=== PATIENT | male | born 1975 | race Caucasian/White ===

== ENCOUNTER 2019-10-29 21:36 | Emergency (ER) | payer SELFPAY ==
[2019-10-29 22:14] VITALS: BP 146/100
--- NOTE | 2019-10-29 22:49 | ER Document Report ---
ED Medical Screen (RME) - General Chief Complaint: ETOH Abuse Stated Complaint: BLOOD PRESSURE Time Seen by Provider: 10/29/19 22:43 Mode of Arrival: Ambulatory Information source: Patient, Transfer Record TRAVEL OUTSIDE OF THE [place] IN LAST 30 DAYS: No - HPI Onset: Other - unkown Quality of pain: No pain Severity: Moderate Notes: 44 year old male with a history of alcohol abuse sent over from [facility] due to his alcohol level being too high. The patient apparently went to [facility] to get help with his drinking. [facility] followed their protocol and brought the patient to the ER since his alcohol was too high for them. The patient was reported to have a low blood pressure at [facility] but this was not the case on ER arrival. The patient looked comfortable on ER arrival. GEN: Alert and oriented patient, no distress PSYCH: Denied SI and HI to nursing. Requesting help with drinking. The above was simply a medical screening exam. A full history and physical was not performed. 10/29/19 23:20 The patient had the psych orderset ordered for him and he started to become belligerent and angry in the ER. Nursing staff was being verbally abused and there was a concern the altercation could become physical. I instructed nursing staff to call security and the police. The police spoke with the patient and instructed him to leave due to his behavior. It is not clear what the patient's alcohol level was at the time he was asked to leave but he was speaking clearly and was able to walk without any problems. - Related Data Allergies/Adverse Reactions: No Known Allergies Allergy (Unverified 10/29/19 22:08) Past Medical History - Social History Frequency of alcohol use: Heavy Drug Abuse: None Physical Exam - Vital signs Vitals: Temp Pulse Resp BP Pulse Ox 98.4 F 101 H 22 H 113/101 H 98 10/29/19 21:41 10/29/19 21:41 10/29/19 21:41 10/29/19 21:41 10/29/19 21:41 Course - Vital Signs Vital signs: Temp Pulse Resp BP Pulse Ox 98.5 F 89 18 146/100 H 100 10/29/19 22:13 10/29/19 22:13 10/29/19 22:13 10/29/19 22:13 10/29/19 22:13
== END 2019-10-29 23:16 | disposition left against medical advice (07) ==
LOC: ER 21:36
DX: F10.10 Alcohol abuse, uncomplicated (principal); Z53.8 Procedure and treatment not carried out for other reasons

== ENCOUNTER 2019-10-30 01:15 | Inpatient (IN) | payer SELFPAY ==
[2019-10-30 02:03] LABS: HEMATOCRIT 45.6 % (37.9-51.0); HEMOGLOBIN 16.1 g/dL (13.5-17.0); MEAN CORPUSCULAR HEMOGLOBIN 33.9 pg (27.0-33.4); MEAN CORPUSCULAR HGB CONC 35.3 g/dL (32.0-36.0); MEAN CORPUSCULAR VOLUME 96 fl (80-97); PLATELET COUNT 172 10^3/uL (150-450); RED BLOOD COUNT 4.74 10^6/uL (4.35-5.55); RED CELL DISTRIBUTION WIDTH 15.6 % (11.5-14.0); WHITE BLOOD COUNT 4.8 10^3/uL (4.0-10.5)
[2019-10-30 02:20] LABS: ALBUMIN 3.3 g/dL (3.5-5.0); ALKALINE PHOSPHATASE 490 U/L (38-126); ANION GAP 13 (5-19); ASPARTATE AMINO TRANSFERASE 425 U/L (17-59); BILIRUBIN,DIRECT 4.6 mg/dL (0.0-0.4); BILIRUBIN,TOTAL 5.2 mg/dL (0.2-1.3); BLOOD UREA NITROGEN 17 mg/dL (7-20); CALCIUM 7.9 mg/dL (8.4-10.2); CARBON DIOXIDE 22 mmol/L (22-30); CHLORIDE 103 mmol/L (98-107); GLUCOSE 130 mg/dL (75-110); POTASSIUM 3.6 mmol/L (3.6-5.0); TOTAL PROTEIN 6.5 g/dL (6.3-8.2)
[2019-10-30 02:21] LABS: ACETAMINOPHEN < 10 ug/mL (10-30); SALICYLATE < 1.0 mg/dL (2.0-20.0)
[2019-10-30 02:30] LABS: ALCOHOL 314 mg/dL (NONE DETECTED)
[2019-10-30 02:39] LABS: ABSOLUTE LYMPHOCYTES# (MANUAL) 1.7 10^3/uL (0.5-4.7); ABSOLUTE MONOCYTES # (MANUAL) 0.5 10^3/uL (0.1-1.4); BAND NEUTROPHILS % (MANUAL) 1 % (3-5); BASOPHILS % (MANUAL) 0 % (0-2); EOSINOPHILS % (MANUAL) 0 % (0-6); LYMPHOCYTES % (MANUAL) 36 % (13-45); MONOCYTES % (MANUAL) 10 % (3-13); SEGMENTED NEUTROPHILS % (MAN) 53 % (42-78); TOTAL CELLS COUNTED 100
[2019-10-30 02:40] LABS: ANISOCYTOSIS SLIGHT; OVALOCYTES SLIGHT; PLATELET COMMENT ADEQUATE; POIKILOCYTOSIS SLIGHT; TOXIC GRANULATION 1+
[2019-10-30] MEDS ORDERED: ONDANSETRON HCL INJ/PF 4 MG/2 ML SDV IV ONE (06:14)
[2019-10-30] MEDS ORDERED: NORMAL SALINE 1000 ML 2,000 ML IV ONE (06:16)
[2019-10-30 06:48] LABS: APPEARANCE,URINE SLIGHTLY-CLOUDY; BILIRUBIN,URINE MODERATE (NEGATIVE); COLOR,URINE AMBER; GLUCOSE, URINE NEGATIVE (NEGATIVE); KETONES,URINE NEGATIVE (NEGATIVE); LEUKOCYTE ESTERASE,URINE NEGATIVE (NEGATIVE); NITRITE,URINE NEGATIVE (NEGATIVE); PROTEIN,URINE NEGATIVE (NEGATIVE); URINE SPECIFIC GRAVITY 1.025
[2019-10-30 07:04] LABS: INTERNATIONAL RATION (INR) 1.09; PROTHROMBIN TIME 14.1 SEC (11.4-15.4)
[2019-10-30 07:06] LABS: URINE AMPHETAMINES SCREEN NEGATIVE; URINE BARBITURATES SCREEN NEGATIVE; URINE BENZODIAZEPINES SCREEN NEGATIVE; URINE COCAINE SCREEN NEGATIVE; URINE METHADONE SCREEN NEGATIVE; URINE PHENCYCLIDINE SCREEN NEGATIVE
[2019-10-30 07:12] LABS: URINE MARIJUANA (THC) SCREEN NEGATIVE
--- NOTE | 2019-10-30 07:33 | EKG REPORT ---
SEVERITY:- BORDERLINE ECG - SINUS RHYTHM LOW VOLTAGE IN FRONTAL LEADS BORDERLINE T WAVE ABNORMALITIES : Confirmed by: Melquiades Klein MD 30-Oct-2019 07:33:21
--- NOTE | 2019-10-30 07:35 | ER Document Report ---
ED General - General Chief Complaint: Alcohol Withdrawl Stated Complaint: MEDICAL CLEAR FOR MOHINI Time Seen by Provider: 10/30/19 06:13 Mode of Arrival: Ambulatory Information source: Patient TRAVEL OUTSIDE OF THE [place] IN LAST 30 DAYS: No - Related Data Allergies/Adverse Reactions: No Known Allergies Allergy (Unverified 10/29/19 22:08) Past Medical History - Social History Smoking Status: Former Smoker Chew tobacco use (# tins/day): No Frequency of alcohol use: Heavy Drug Abuse: None Patient has suicidal ideation: No Patient has homicidal ideation: No Physical Exam - Vital signs Vitals: Temp Pulse Resp BP Pulse Ox 98 F 94 18 135/90 H 98 10/30/19 01:37 10/30/19 01:37 10/30/19 01:37 10/30/19 01:37 10/30/19 01:37 Course - Vital Signs Vital signs: Temp Pulse Resp BP Pulse Ox 98 F 67 16 131/85 H 99 10/30/19 01:37 10/30/19 06:11 10/30/19 06:11 10/30/19 06:01 10/30/19 06:01 - Laboratory Result Diagrams: 10/30/19 01:45 10/30/19 01:45 Laboratory results interpreted by me: 10/30/19 10/30/19 10/30/19 01:45 01:45 06:05 MCH 33.9 H RDW 15.6 H Band Neutrophils % 1 L Glucose 130 H Calcium 7.9 L Total Bilirubin 5.2 H Direct Bilirubin 4.6 H AST 425 H Alkaline Phosphatase 490 H Albumin 3.3 L Urine Bilirubin MODERATE H Urine Urobilinogen 2.0 H Salicylates < 1.0 L Acetaminophen < 10 L Serum Alcohol 314 H*
[2019-10-30] MEDS ORDERED: LORAZEPAM INJ 2 MG/1 ML VIAL IV ONE (07:47)
--- NOTE | 2019-10-30 07:56 | ER Document Report ---
ED Medical Screen (RME) - General Chief Complaint: Alcohol Withdrawl Stated Complaint: MEDICAL CLEAR FOR MOHINI Time Seen by Provider: 10/30/19 06:13 Mode of Arrival: Ambulatory Information source: Patient Notes: 44-year-old male patient presenting to the emergency department with chief complaint of acute alcohol intoxication and abdominal pain. Patient reports he feels the worst he has ever felt in his life. Patient was trying to obtain treatment at the [facility] when they referred him here for an elevated alcohol level. On review of records patient was also checked and last night but became aggressive and combative with the staff so he decided to leave after a medical screening was done by Dr. Stewart. Patient reports he has been told before that he has a "fatty liver". Patient has jaundice. His abdomen is very tender. I have greeted and performed a rapid initial assessment of this patient. A comprehensive ED assessment and evaluation of the patient, analysis of test results and completion of the medical decision making process will be conducted by additional ED providers. I have specifically instructed the patient or family members with the patient to immediately return to any nursing staff should anything change in the patient's condition or with their chief complaint. TRAVEL OUTSIDE OF THE [place] IN LAST 30 DAYS: No - Related Data Allergies/Adverse Reactions: No Known Allergies Allergy (Unverified 10/29/19 22:08) Past Medical History - Social History Chew tobacco use (# tins/day): No Frequency of alcohol use: Heavy Drug Abuse: None Physical Exam - Vital signs Vitals: Temp Pulse Resp BP Pulse Ox 98 F 94 18 135/90 H 98 10/30/19 01:37 10/30/19 01:37 10/30/19 01:37 10/30/19 01:37 10/30/19 01:37 Course - Vital Signs Vital signs: Temp Pulse Resp BP Pulse Ox 98 F 67 16 122/82 100 10/30/19 01:37 10/30/19 06:11 10/30/19 06:11 10/30/19 07:01 10/30/19 07:01 - Laboratory Result Diagrams: 10/30/19 01:45 10/30/19 01:45 Laboratory results interpreted by me: 10/30/19 10/30/19 10/30/19 01:45 01:45 06:05 MCH 33.9 H RDW 15.6 H Band Neutrophils % 1 L Glucose 130 H Calcium 7.9 L Total Bilirubin 5.2 H Direct Bilirubin 4.6 H AST 425 H Alkaline Phosphatase 490 H Albumin 3.3 L Urine Bilirubin MODERATE H Urine Urobilinogen 2.0 H Salicylates < 1.0 L Acetaminophen < 10 L Serum Alcohol 314 H*
--- NOTE | 2019-10-30 08:33 | RADIOLOGY REPORT (SQ) ---
EXAM DESCRIPTION: U/S ABDOMEN LIMITED W/O DOP COMPLETED DATE/TIME: 10/30/2019 8:21 am REASON FOR STUDY: eval for ascites COMPARISON: None. TECHNIQUE: Static and real time goodwin scale ultrasound images acquired of the abdomen for evaluation of ascites. Additional color Doppler images acquired. LIMITATIONS: None. FINDINGS: Limited sonographic evaluation of all 4 quadrants was performed for evaluation of ascites. No significant ascites identified. OTHER: Incidentally noted hepatomegaly and hepatic steatosis. IMPRESSION: No significant ascites. Incidentally noted hepatomegaly and hepatic steatosis. TECHNICAL DOCUMENTATION: JOB ID: [id number] 2010 [employer]- All Rights Reserved Reading location - IP/workstation name: [email or web address]
[2019-10-30] MEDS ORDERED: THIAMINE HCL 100 MG, FOLIC ACID 1 MG in NORMAL SALINE 250 ML IV ONE (08:36)
[2019-10-30] MEDS ORDERED: FAMOTIDINE INJ/PF 20 MG/2 ML SDV IV ONE (08:36)
--- NOTE | 2019-10-30 11:27 | RADIOLOGY REPORT (SQ) ---
EXAM DESCRIPTION: U/S ABDOMEN LIMITED W/O DOP COMPLETED DATE/TIME: 10/30/2019 10:52 am REASON FOR STUDY: epigastric, RUQ abd, eval gallbladder/pancreas COMPARISON: 10/30/2019 TECHNIQUE: Dynamic and static grayscale images acquired of the abdomen and recorded on PACS. Additio nal selected color Doppler and spectral images recorded. LIMITATIONS: None. FINDINGS: PANCREAS: Not well visualized. LIVER: Hepatomegaly measuring 20.1 cm. Increased echogenicity with decreased visualization of the po rtal triads. No focal lesions. LIVER VASCULATURE: Normal directional flow of the main portal vein and hepatic veins. GALLBLADDER: Gallbladder wall thickening measuring up to 1.1 cm with associated pericholecystic fluid . Focal hyperechoic area within the gallbladder wall measuring 1.8 x 1.1 x 1.9 cm. Extensive intral uminal sludge within the gallbladder lumen. ULTRASOUND-DETECTED OWENS'S SIGN: Negative. INTRAHEPATIC DUCTS AND COMMON DUCT: Dilation of the CBD measuring 7 mm. No obstructing lesion identi fied. No intrahepatic ductal dilation INFERIOR VENA CAVA: Normal flow. AORTA: No aneurysm. RIGHT KIDNEY: Normal size. Normal echogenicity. No solid or suspicious masses. No hydronephrosis. No calcifications. PERITONEAL AND RIGHT PLEURAL SPACE: No ascites or effusions. OTHER: No other significant findings. IMPRESSION: 1. Extensive sludge throughout the gallbladder with gallbladder wall thickening and per icholecystic fluid highly suspicious for acute cholecystitis. Recommend surgical consultation. More focal area of wall thickening measuring up to 1.8 x 1.1 x 1.9 cm possibly focal wall thickening alth ough polyp/mass is another consideration. 2. Dilation of the CBD measuring up to 7 mm without obstructing lesion or intrahepatic ductal dilati on identified. Recommend correlation for evidence of biliary obstruction. MRCP or ERCP could be con sidered for further characterization. 3. Hepatomegaly and hepatic steatosis. TECHNICAL DOCUMENTATION: JOB ID: [id number] 2010 [employer]- All Rights Reserved Reading location - IP/workstation name: [email or web address]
--- NOTE | 2019-10-30 12:12 | ER Document Report ---
ED General - General Chief Complaint: Alcohol Withdrawl Stated Complaint: MEDICAL CLEAR FOR MOHINI Time Seen by Provider: 10/30/19 06:13 Mode of Arrival: Ambulatory TRAVEL OUTSIDE OF THE [place] IN LAST 30 DAYS: No - HPI Notes: 44-year-old male to the emergency department with complaints of needing 8 and alcohol withdrawal and epigastric and right upper quadrant abdominal pain that i s been getting worse over the past week. He states that he drinks over a pint of liquor every single day and last drink last night. He states that he has been told that he has fatty liver and he wants to try to get help to stop. States in the past week he has been really feeling pretty poorly. He states that he has epigastric pain and right upper quadrant abdominal pain he has been vomiting quite a lot. Denies any fevers or chills. He is still has gallbladder. He has never had pancreatitis. He denies any hematemesis. He also admits that he has been buying Suboxone off the streets to use. He last used 2 weeks ago. - Related Data Allergies/Adverse Reactions: No Known Allergies Allergy (Unverified 10/29/19 22:08) Past Medical History - General Information source: Patient - Social History Smoking Status: Former Smoker Chew tobacco use (# tins/day): No Frequency of alcohol use: Heavy Drug Abuse: Other - Suboxone off the streets Family History: Reviewed & Not Pertinent Patient has suicidal ideation: No Patient has homicidal ideation: No Review of Systems - Review of Systems Constitutional: denies: Chills, Fever EENT: No symptoms reported Cardiovascular: denies: Chest pain, Palpitations, Heart racing, Orthopnea, Dyspnea, Syncope, Lightheaded Respiratory: denies: Cough, Short of breath Gastrointestinal: Abdominal pain, Nausea, Vomiting. denies: Diarrhea, Blood in vomit, Black stools, Rectal bleeding Genitourinary: No symptoms reported Musculoskeletal: No symptoms reported Skin: No symptoms reported Hematologic/Lymphatic: No symptoms reported Neurological/Psychological: Tremor - States that he has had some tremors since he has not been drinking. -: Yes All other systems reviewed and negative Physical Exam - Vital signs Vitals: Temp Pulse Resp BP Pulse Ox 98 F 94 18 135/90 H 98 10/30/19 01:37 10/30/19 01:37 10/30/19 01:37 10/30/19 01:37 10/30/19 01:37 Interpretation: Normal - General General appearance: Appears well, Alert In distress: None - HEENT Head: Normocephalic, Atraumatic Eyes: Normal Pupils: PERRL Ears: Normal External canal: Normal Tympanic membrane: Normal Sinus: Normal Nasal: Normal Mouth/Lips: Normal Mucous membranes: Normal Pharynx: Normal. No: Uvular edema, Potential airway comprom. Neck: Normal, Supple. No: Lymphadenopathy, Meningismus - Respiratory Respiratory status: No respiratory distress Chest status: Nontender. No: Accessory muscle use Breath sounds: Normal. No: Rales, Rhonchi, Wheezing Chest palpation: Normal - Cardiovascular Rhythm: Regular Heart sounds: Normal auscultation Murmur: No - Abdominal Inspection: Normal Distension: No distension Bowel sounds: Normal Tenderness: Tender - There is tenderness to palpation in the epigastrium and the right. No: McBurney's point, Kimbrough's sign, Guarding, Rebound Organomegaly: No organomegaly - Back Back: Normal, Nontender, CVA tenderness - Extremities General upper extremity: Normal inspection, Nontender, Normal color, Normal ROM, Normal temperature General lower extremity: Normal inspection, Nontender, Normal color, Normal ROM, Normal temperature, Normal weight bearing - Neurological Neuro grossly intact: Yes Cognition: Normal Orientation: AAOx4 [place] Coma Scale Eye Opening: Spontaneous [place] Coma Scale Verbal: Oriented Sebas Coma Scale Motor: Obeys Commands Sebas Coma Scale Total: 15 Speech: Normal Cranial nerves: Normal. No: Facial palsy Cerebellar coordination: Normal. 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 No: Pronator drift Sensory: Normal Notes: No tremors are appreciated on exam. - Psychological Associated symptoms: Normal affect, Normal mood - Skin Skin Temperature: Warm Skin Moisture: Dry Skin Color: Normal Course - Re-evaluation Re-evalutation: 10/30/[address] Smith, she is aware of the patient when the patient was medically screened. We agree that the ultrasound that was completed did not give enough information about the right upper quadrant and pancreas. We will obtain a dedicated gallbladder ultrasound. Noted elevated total and direct bili as well as AST and alk phos. Lipase is within normal limits. Second ultrasound obtained and there is a radiology reading for gallbladder sludge and lamin-cholestatic fluid. Updated Dr. Smith and she agrees with plan for admission and to start discussion with hospitalist and surgery team. Spoke with Dr. Freeman, general surgeon on-call and we discussed ultrasound readings plus patient's history of alcoholism, his liver enzymes and total bili as well as direct bili. Dr. Freeman believes this is likely not a acute cholecystitis but rather an acute hepatitis. He would like for the patient to be admitted to the hospitalist service. He states that better imaging modality would be a HIDA scan to evaluate the gallbladder for filling dysfunction. Spoke with Estephania Washington, hospitalist nurse practitioner. She will come and see the patient for further evaluation. LAZARO Washington came down and saw the patient and she will admit the patient to the hospitalist service. Attending physician is Dr. Cedeno. She would like for the patient to go to a telemetry bed. She is aware of the ultrasound findings and Dr. Freeman's suggestions. We discussed the efficacy of adding a prophylactic a ntibiotic at this point but since patient does not have a fever or an elevated white count we will hold. Patient is aware of admission and agrees with the plan. Impression: Alcoholism, acute alcohol intoxication, alcohol withdrawal, epigastric and right upper quadrant abdominal pain, acute hepatitis. Patient to be admitted to the hospitalist team for further evaluation and management. Patient is in agreement meant with admission. - Vital Signs Vital signs: Temp Pulse Resp BP Pulse Ox 98.2 F 67 16 108/70 100 10/30/19 12:43 10/30/19 06:11 10/30/19 12:43 10/30/19 12:43 10/30/19 12:43 - Laboratory Result Diagrams: 10/30/19 01:45 10/30/19 01:45 Laboratory results interpreted by me: 10/30/19 10/30/19 10/30/19 01:45 01:45 06:05 MCH 33.9 H RDW 15.6 H Band Neutrophils % 1 L Glucose 130 H Calcium 7.9 L Total Bilirubin 5.2 H Direct Bilirubin 4.6 H AST 425 H Alkaline Phosphatase 490 H Ammonia Albumin 3.3 L Urine Bilirubin MODERATE H Urine Urobilinogen 2.0 H Salicylates < 1.0 L Acetaminophen < 10 L Serum Alcohol 314 H* 10/30/19 12:20 MCH RDW Band Neutrophils % Glucose Calcium Total Bilirubin Direct Bilirubin AST Alkaline Phosphatase Ammonia < 8.7 L Albumin Urine Bilirubin Urine Urobilinogen Salicylates Acetaminophen Serum Alcohol - Diagnostic Test Radiology reviewed: Image reviewed, Reports reviewed Discharge - Discharge Clinical Impression: Alcohol abuse, Acute hepatitis Alcohol withdrawal Qualifiers: Complication of substance-induced condition: uncomplicated Qualified Code(s): F10.230 - Alcohol dependence with withdrawal, uncomplicated Condition: Stable Disposition: ADMITTED INPATIENT Admitting Provider: Pao (Hospitalist) Unit Admitted: Telemetry
[2019-10-30 12:53] LABS: INTERNATIONAL RATION (INR) 1.26; PROTHROMBIN TIME 15.9 SEC (11.4-15.4)
[2019-10-30 12:54] LABS: PARTIAL THROMBOPLASTIN TIME 28.7 SEC (23.5-35.8)
[2019-10-30] MEDS ORDERED: GLUCAGON,HUMAN RECOMB 1 MG INJ SUBCUT PRN (13:17)
[2019-10-30] MEDS ORDERED: ONDANSETRON HCL INJ/PF 4 MG/2 ML SDV IV PRN (13:17)
[2019-10-30] MEDS ORDERED: ACETAMINOPHEN 325 MG TABLET PO PRN (13:17)
[2019-10-30] MEDS ORDERED: PROMETHAZINE HCL INJ 25 MG/1 ML VIAL IV PRN (13:17)
[2019-10-30] MEDS ORDERED: MAG HYDROX/AL HYDROX/SIMETH SUSP 30 ML UDCUP PO PRN (13:17)
[2019-10-30] MEDS ORDERED: DEXTROSE 50%-WATER 25 GM/50 ML DISP.SYRIN IV PRN ×2 (13:17)
[2019-10-30] MEDS ORDERED: ALBUTEROL SULFATE 0.083% NEB 2.5 MG/3 ML AMPUL NEB PRN (13:17)
[2019-10-30] MEDS ORDERED: DEXTROSE 40% GEL 15 GM TUBE PO PRN ×2 (13:17)
[2019-10-30] MEDS ORDERED: HYDRALAZINE HCL INJ/PF 20 MG/1 ML SDV IV PRN (13:22)
[2019-10-30] MEDS ORDERED: KETOROLAC TROMETHAMINE INJ/PF 30 MG/1 ML SDV IV PRN (13:36)
--- NOTE | 2019-10-30 13:42 | PDOC H&P ---
History of Present Illness Admission Date/PCP: 10/30/19 13:02 MESHA MCCRACKEN MD Patient complains of: Abdominal pain History of Present Illness: GENE ANDINO is a 44 year old male with a past medical history of alcohol dependence with continuous use, tobacco dependence, substance abuse, and otherwise limited medical history related to poor healthcare utilization who presented to the emergency department today for medical screening/clearance prior to presenting to alcohol detox facility. On exam, patient was found to have scleral icterus, mild jaundice, distended abdomen, that was hypoactive and exquisitely tender on palpation. Further evaluation revealed stable vital signs, unremarkable CBC, normal coags, chemistry significant for T bili 5.2, AST 425, ALT 495, alk phos 490, normal lipase, normal ammonia, unremarkable urinalysis, and toxicology screening significant for a serum alcohol level of 314. Abdominal ultrasound was significant for extensive sludge throughout the gallbladder with gallbladder wall thickening and pericholecystic fluid collazo spicious for acute cholecystitis. Recommended MRCP for follow-up. Patient was provided IV fluids and Ativan. Case was discussed with surgery who agreed to follow the patient but recommended hospitalist admission. He has been referred to the hospitalist service for admission and management of the above-stated complaints and findings Past Medical History Cardiac Medical History: Reports: None Pulmonary Medical History: Reports: None EENT Medical History: Reports: None Neurological Medical History: Reports: None Endocrine Medical History: Reports: None Renal/ Medical History: Reports: None Malignancy Medical History: Reports: None GI Medical History: Reports: Gastroesophageal Reflux Disease Musculoskeltal Medical History: Reports: None Skin Medical History: Reports: None Psychiatric Medical History: Reports: Alcohol Dependency, Substance Abuse, Tobacco Dependency Traumatic Medical History: Reports: None Hematology: Reports: None Infectious Medical History: Reports: None Past Surgical History Past Surgical History: Reports: None Social History Information Source: Patient Lives with: Spouse/Significant other Smoking Status: Current Every Day Smoker Cigarettes Packs Per Day: 1 Electronic Cigarette use?: No Last Time Smoked: 10/19/19 Frequency of Alcohol Use: Heavy Amount of Alcoholic Beverages Per Day: 1 pint liquor Last Alcohol Use: 10/29/19 Hx Recreational Drug Use: No - pt denies Hx Prescription Drug Abuse: Yes - suboxone - Advance Directive Resuscitation Status: Full Code Surrogate healthcare decision maker:: Patient's significant other, Sue Flores Family History Family History: Reviewed & Not Pertinent Parental Family History Reviewed: No - patient can't confirm Children Family History Reviewed: No Sibling(s) Family History Reviewed.: No Medication/Allergy Home Medications: Ibuprofen [Ibu] 600 mg PO DAILY 10/30/19 Allergies/Adverse Reactions: No Known Allergies Allergy (Unverified 10/29/19 22:08) Review of Systems Constitutional: PRESENT: headache(s), weakness. ABSENT: chills, fever(s), weight gain, weight loss Eyes: ABSENT: visual disturbances Ears: ABSENT: hearing changes Cardiovascular: ABSENT: chest pain, dyspnea on exertion, edema, orthropnea, palpitations Respiratory: ABSENT: cough, hemoptysis Gastrointestinal: PRESENT: diarrhea, nausea. ABSENT: abdominal pain, constipation, hematemesis, hematochezia, vomiting Genitourinary: ABSENT: dysuria, hematuria Musculoskeletal: ABSENT: joint swelling Integumentary: ABSENT: rash, wounds Neurological: PRESENT: tremor(s). ABSENT: abnormal gait, abnormal speech, confusion, dizziness, focal weakness, syncope Psychiatric: PRESENT: anxiety. ABSENT: depression, homidical ideation, suicidal ideation Endocrine: ABSENT: cold intolerance, heat intolerance, polydipsia, polyuria Hematologic/Lymphatic: ABSENT: easy bleeding, easy bruising Physical Exam Vital Signs: Temp Pulse Resp BP Pulse Ox 98.2 F 67 16 108/70 100 10/30/19 12:43 10/30/19 06:11 10/30/19 12:43 10/30/19 12:43 10/30/19 12:43 Intake & Output 10/29/19 10/30/19 10/31/19 06:59 06:59 06:59 Intake Total 2251.2 Balance 2251.2 Weight 78.6 kg General appearance: PRESENT: cooperative, well-developed, well-nourished Head exam: PRESENT: atraumatic, normocephalic Eye exam: PRESENT: EOMI, PERRLA, scleral icterus Ear exam: PRESENT: normal external ear exam Mouth exam: PRESENT: moist, tongue midline Neck exam: ABSENT: carotid bruit, JVD, lymphadenopathy, thyromegaly Respiratory exam: PRESENT: clear to auscultation erick, symmetrical, unlabored. ABSENT: rales, rhonchi, wheezes Cardiovascular exam: PRESENT: RRR, +S1, +S2, tachycardia. ABSENT: diastolic murmur, rubs, systolic murmur Pulses: PRESENT: normal dorsalis pedis pul Vascular exam: PRESENT: normal capillary refill GI/Abdominal exam: PRESENT: distended, hypoactive bowel sounds, soft, tenderness. ABSENT: guarding, mass, organolmegaly, rebound Rectal exam: PRESENT: deferred Extremities exam: PRESENT: full ROM. ABSENT: calf tenderness, clubbing, pedal edema Neurological exam: PRESENT: alert, awake, oriented to person, oriented to place, oriented to time, oriented to situation, CN II-XII grossly intact, other - Forgetful; repetitive phrases. ABSENT: motor sensory deficit Psychiatric exam: PRESENT: appropriate affect, normal mood. ABSENT: homicidal ideation, suicidal ideation Skin exam: PRESENT: dry, intact, jaundice, warm. ABSENT: cyanosis, rash Results Laboratory Results: 10/30/19 01:45 10/30/19 01:45 10/30/19 10/30/19 10/30/19 01:45 01:45 01:45 WBC 4.8 RBC 4.74 Hgb 16.1 Hct 45.6 MCV 96 MCH 33.9 H MCHC 35.3 RDW 15.6 H Plt Count 172 Seg Neutrophils % Not Reportable Sodium 137.9 Potassium 3.6 Chloride 103 Carbon Dioxide 22 Anion Gap 13 BUN 17 Creatinine 0.94 Est GFR ( Amer) > 60 Glucose 130 H Calcium 7.9 L Total Bilirubin 5.2 H AST 425 H Alkaline Phosphatase 490 H Ammonia Total Protein 6.5 Albumin 3.3 L Lipase 110.3 Urine Color Urine Appearance Urine pH Ur Specific Dickinson Urine Protein Urine Glucose (UA) Urine Ketones Urine Blood Urine Nitrite Ur Leukocyte Esterase Urine WBC (Auto) Urine RBC (Auto) 10/30/19 10/30/19 06:05 12:20 WBC RBC Hgb Hct MCV MCH MCHC RDW Plt Count Seg Neutrophils % Sodium Potassium Chloride Carbon Dioxide Anion Gap BUN Creatinine Est GFR ( Amer) Glucose Calcium Total Bilirubin AST Alkaline Phosphatase Ammonia < 8.7 L Total Protein Albumin Lipase Urine Color VAUGHN Urine Appearance SLIGHTLY-CLOUDY Urine pH 5.0 Ur Specific Dickinson 1.025 Urine Protein NEGATIVE Urine Glucose (UA) NEGATIVE Urine Ketones NEGATIVE Urine Blood NEGATIVE Urine Nitrite NEGATIVE Ur Leukocyte Esterase NEGATIVE Urine WBC (Auto) 3 Urine RBC (Auto) 0 10/30/19 01:45 Creatine Kinase 146 Impressions: Abdomen Ultrasound 10/30/19 09:51 IMPRESSION: 1. Extensive sludge throughout the gallbladder with gallbladder wall thickening and pericholecystic fluid highly suspicious for acute cholecystitis. Recommend surgical consultation. More focal area of wall thickening measuring up to 1.8 x 1.1 x 1.9 cm possibly focal wall thickening although polyp/mass is another consideration. 2. Dilation of the CBD measuring up to 7 mm without obstructing lesion or intrahepatic ductal dilation identified. Recommend correlation for evidence of biliary obstruction. MRCP or ERCP could be considered for further characterization. 3. Hepatomegaly and hepatic steatosis. Assessment and Plan - Diagnosis (1) Cholecystitis Is this a current diagnosis for this admission?: Yes Plan: Patient endorses 3 weeks of abdominal discomfort, nausea, and frequent loose stools. He reports that his abdomen became exquisitely tender 1 to 2 days ago. Of note, the patient is acutely intoxicated with a serum EtOH of 314 and evidence of alcohol hepatitis. However, Ultrasound of the abdomen revealed extensive sludge throughout the gallbladder with gallbladder wall thickening and pericholecystic fluid highly suspicious for acute cholecystitis. Recommend follow-up MRCP. MRCP is pending. Patient is admitted to medical floor on continuous cardiac telemetry. He is placed in n.p.o. status with the exception of ice chips. Full support with generous IV fluids. Antiemetics and analgesics as needed. Formal surgical consultation pending MRCP results. Patient is afebrile with normal WBCs; will hold on starting antibiotic therapy at this time. (2) Hepatitis Is this a current diagnosis for this admission?: Yes Plan: Multifactorial secondary to possible acute cholecystitis as well as alcohol dependence with continuous use. Hepatitis panel, HIV, RPR pending. Follow-up LFTs and PT/INR in the morning. Further evaluation of cholecystitis as above. Management of alcohol withdrawal and dependence as below. (3) Alcohol withdrawal Qualifiers: Complication of substance-induced condition: uncomplicated Qualified Code(s): F10.230 - Alcohol dependence with withdrawal, uncomplicated Is this a current diagnosis for this admission?: Yes Plan: Patient will receive generous IV fluids; IV banana bag nightly. He is placed on scheduled p.o. Valium. IV Ativan as needed for anxiety/agitation/withdrawal symptoms. Fall, seizure, aspiration precautions. Discharge planning and patient navigator are consulted. (4) Alcohol dependence with intoxication, unspecified Qualifiers: Complication of substance-induced condition: with unspecified complication Qualified Code(s): F10.229 - Alcohol dependence with intoxication, unspecified Is this a current diagnosis for this admission?: Yes Plan: Cessation encouraged; patient is interested in alcohol detox/inpatient rehabili tation following admission. Discharge planning consulted. - Time Time Spent with patient: 35 or more minutes Medications reviewed and adjusted accordingly: Yes Anticipated discharge: Other - inpatient alcohol rehab
[2019-10-30] MEDS ORDERED: TUBERCULIN,PURIF.PROT.DERIV. 5 TU/0.1 ML TEST 1 ML VIAL ID ONE (15:00)
[2019-10-30] MEDS: HEPARIN SOD (PORCINE) 5,000 UNIT/ML 1 ML VIAL SUBCUT SCH ×2 (15:29→21:32)
[2019-10-30] MEDS: DIAZEPAM 5 MG TABLET PO SCH ×2 (17:04→23:36)
[2019-10-30] MEDS: NORMAL SALINE 1000 ML 1,000 ML with POTASSIUM CHLORIDE 20 MEQ, MAGNESIUM SULFATE 8 MEQ,... IV SCH ×5 (18:15)
[2019-10-30] MEDS: PANTOPRAZOLE SODIUM 40 MG VIAL IV SCH (21:42)
[2019-10-31] MEDS: HEPARIN SOD (PORCINE) 5,000 UNIT/ML 1 ML VIAL SUBCUT SCH ×3 (05:09→21:21)
[2019-10-31] MEDS: DIAZEPAM 5 MG TABLET PO SCH ×3 (05:10→17:40)
[2019-10-31] MEDS: NORMAL SALINE 1000 ML 1,000 ML IV PRN ×2 (05:10→12:13)
[2019-10-31 06:20] LABS: HEMATOCRIT 39.4 % (37.9-51.0); MEAN CORPUSCULAR HEMOGLOBIN 34.5 pg (27.0-33.4); MEAN CORPUSCULAR HGB CONC 34.9 g/dL (32.0-36.0); MEAN CORPUSCULAR VOLUME 99 fl (80-97); PLATELET COUNT 133 10^3/uL (150-450); RED BLOOD COUNT 3.98 10^6/uL (4.35-5.55); RED CELL DISTRIBUTION WIDTH 15.2 % (11.5-14.0); WHITE BLOOD COUNT 4.4 10^3/uL (4.0-10.5)
[2019-10-31 06:27] LABS: HEMOGLOBIN 13.7 g/dL (13.5-17.0)
[2019-10-31 06:44] LABS: ALBUMIN 2.7 g/dL (3.5-5.0); ALKALINE PHOSPHATASE 515 U/L (38-126); ANION GAP 13 (5-19); ASPARTATE AMINO TRANSFERASE 340 U/L (17-59); BILIRUBIN,DIRECT 5.2 mg/dL (0.0-0.4); BILIRUBIN,TOTAL 6.2 mg/dL (0.2-1.3); BLOOD UREA NITROGEN 9 mg/dL (7-20); CARBON DIOXIDE 20 mmol/L (22-30); CHLORIDE 100 mmol/L (98-107); CHOLESTEROL 205.23 mg/dL (0-200); GLUCOSE 84 mg/dL (75-110); POTASSIUM 3.4 mmol/L (3.6-5.0); TOTAL PROTEIN 5.6 g/dL (6.3-8.2)
[2019-10-31 06:55] LABS: DIRECT LDL 63 mg/dL (<100)
[2019-10-31 07:04] LABS: CALCIUM 6.7 mg/dL (8.4-10.2)
[2019-10-31 07:17] LABS: TRIGLYCERIDES 3204 mg/dL (<150)
[2019-10-31] MEDS: PANTOPRAZOLE SODIUM 40 MG VIAL IV SCH ×2 (09:33→21:32)
[2019-10-31] MEDS ORDERED: ONDANSETRON HCL INJ/PF 4 MG/2 ML SDV IV PRN (11:00)
[2019-10-31] MEDS ORDERED: PROMETHAZINE HCL INJ 25 MG/1 ML VIAL IV PRN (11:00)
--- NOTE | 2019-10-31 16:50 | PDOC PROGRESS REPORT ---
Subjective Progress Note for:: 10/31/19 Subjective:: GENE ANDINO is a 44 year old male with a past medical history of alcohol dependence with continuous use, tobacco dependence, substance abuse, and otherwise limited medical history related to poor healthcare utilization who was admitted to [facility] with cholecystitis, hepatitis, and alcohol dependence with intoxication and withdrawal. Patient was seen on afternoon rounds. He was found resting in bed, comfortably, on room air. He reports continued abdominal discomfort and nausea but no further episodes of emesis. He has been tolerating ice chips without difficult y. He does endorse anxiety, tremors, and frequent sweats but has not required PRN Ativan for management of his withdrawal symptoms as of yet. He did have a panic attack while in the MRI yesterday. Discussed need for further imaging of his gallbladder; surgery has recommended MRCP. Patient initially declined and asked if CT would be appropriate but then later had nursing called to reattempt MRCP. He denies fever, chest pain, palpitations, dyspnea, orthopnea, cough, and diarrhea. He denies visual and auditory hallucinations. He confirms his intent to go to the [facility] for alcohol rehabilitation following this admission. He has no other questions or concerns at this time. No concerns per nursing. Reason For Visit: ALCOHOL INTOXICATION, ALCOHOLIC HEPATITIS, ACUTE Physical Exam Vital Signs: Temp Pulse Resp BP Pulse Ox 98.9 F 78 16 127/85 H 97 10/31/19 12:00 10/31/19 12:00 10/31/19 12:00 10/31/19 12:00 10/31/19 12:00 Intake & Output 10/30/19 10/31/19 11/01/19 06:59 06:59 06:59 Intake Total 3274.2 881 Output Total 600 800 Balance 2674.2 81 Weight 78.6 kg 79.7 kg General appearance: PRESENT: no acute distress, cooperative, disheveled, well- developed, well-nourished Head exam: PRESENT: atraumatic, normocephalic Eye exam: PRESENT: conjunctiva pink, EOMI, PERRLA, scleral icterus Ear exam: PRESENT: normal external ear exam Mouth exam: PRESENT: moist, tongue midline Neck exam: ABSENT: carotid bruit, JVD, lymphadenopathy, thyromegaly Respiratory exam: PRESENT: clear to auscultation erick, symmetrical, unlabored. ABSENT: rales, rhonchi, wheezes Cardiovascular exam: PRESENT: RRR, +S1, +S2. ABSENT: diastolic murmur, rubs, systolic murmur Vascular exam: PRESENT: normal capillary refill GI/Abdominal exam: PRESENT: distended, hypoactive bowel sounds, soft, tenderness. ABSENT: guarding, mass, organolmegaly, rebound Rectal exam: PRESENT: deferred Extremities exam: PRESENT: full ROM. ABSENT: calf tenderness, clubbing, pedal edema Musculoskeletal exam: PRESENT: ambulatory Neurological exam: PRESENT: alert, awake, oriented to person, oriented to place, oriented to time, oriented to situation, CN II-XII grossly intact. ABSENT: motor sensory deficit Psychiatric exam: PRESENT: anxious, appropriate affect, normal mood. ABSENT: homicidal ideation, suicidal ideation Skin exam: PRESENT: dry, intact, jaundice, warm. ABSENT: cyanosis, rash Results Laboratory Results: 10/31/19 04:32 10/31/19 04:32 10/31/19 10/31/19 04:32 04:32 WBC 4.4 RBC 3.98 L Hgb 13.7 D Hct 39.4 MCV 99 H MCH 34.5 H MCHC 34.9 RDW 15.2 H Plt Count 133 L Sodium 132.5 L Potassium 3.4 L Chloride 100 Carbon Dioxide 20 L Anion Gap 13 BUN 9 Creatinine 0.75 Est GFR ( Amer) > 60 Glucose 84 Calcium 6.7 L* Phosphorus 3.0 Magnesium 1.6 Total Bilirubin 6.2 H AST 340 H Alkaline Phosphatase 515 H Total Protein 5.6 L Albumin 2.7 L Triglycerides 3204 H Cholesterol 205.23 H LDL Cholesterol Direct 63 HDL Cholesterol 28 L 10/30/19 01:45 Creatine Kinase 146 Impressions: Abdomen Ultrasound 10/30/19 09:51 IMPRESSION: 1. Extensive sludge throughout the gallbladder with gallbladder wall thickening and pericholecystic fluid highly suspicious for acute cholecystitis. Recommend surgical consultation. More focal area of wall t hickening measuring up to 1.8 x 1.1 x 1.9 cm possibly focal wall thickening although polyp/mass is another consideration. 2. Dilation of the CBD measuring up to 7 mm without obstructing lesion or int rahepatic ductal dilation identified. Recommend correlation for evidence of biliary obstruction. MRCP or ERCP could be considered for further characterization. 3. Hepatomegaly and hepatic steatosis. Assessment and Plan - Diagnosis (1) Cholecystitis Is this a current diagnosis for this admission?: Yes Plan: Patient endorses 3 weeks of abdominal discomfort, nausea, and frequent loose stools. He reports that his abdomen became exquisitely tender 1 to 2 days ago. Of note, the patient is acutely intoxicated with a serum EtOH of 314 and evidence of alcohol hepatitis. However, Ultrasound of the abdomen revealed extensive sludge throughout the gallbladder with gallbladder wall thickening and pericholecystic fluid highly suspicious for acute cholecystitis. Recommend follow-up MRCP. Will reattempt MRCP today. Patient is admitted to medical floor on continuous cardiac telemetry. He is placed in n.p.o. status with the exception of ice chips. Support with generous IV fluids. Antiemetics and analgesics as needed. Formal surgical consultation pending MRCP results. Patient is afebrile with normal WBCs; will hold on starting antibiotic therapy at this time. (2) Hepatitis Is this a current diagnosis for this admission?: Yes Plan: Multifactorial secondary to possible acute cholecystitis as well as alcohol dependence with continuous use. Hepatitis panel pending. HIV and RPR are negative. Follow-up LFTs and PT/INR have trended upward slightly. Further evaluation of cholecystitis as above. Management of alcohol withdrawal and dependence as below. (3) Alcohol withdrawal Qualifiers: Complication of substance-induced condition: uncomplicated Qualified Code(s): F10.230 - Alcohol dependence with withdrawal, uncomplicated Is this a current diagnosis for this admission?: Yes Plan: Patient will receive generous IV fluids; IV banana bag nightly. He is placed on scheduled p.o. Valium. IV Ativan as needed for anxiety/agitation/withdrawal symptoms. Fall, seizure, aspiration precautions. Discharge planning and patient navigator are consulted. (4) Alcohol dependence with intoxication, unspecified Qualifiers: Complication of substance-induced condition: with unspecified complication Qualified Code(s): F10.229 - Alcohol dependence with intoxication, unspecified Is this a current diagnosis for this admission?: Yes Plan: Cessation encouraged; patient is interested in alcohol detox/inpatient rehabilitation following admission. Discharge planning consulted. (5) High triglycerides Is this a current diagnosis for this admission?: Yes Plan: Triglycerides 3204 Will start on fenofibrate once diet is advanced. Watch for evidence of developing pancreatitis. - Time Time Spent with patient: 25-34 minutes Medications reviewed and adjusted accordingly: Yes Anticipated discharge: Other - inpatient alcohol rehab
[2019-10-31] MEDS: NORMAL SALINE 1000 ML 1,000 ML with POTASSIUM CHLORIDE 20 MEQ, MAGNESIUM SULFATE 8 MEQ,... IV SCH ×5 (17:40)
[2019-10-31] MEDS: LORAZEPAM INJ 2 MG/1 ML VIAL IV PRN (19:03)
--- NOTE | 2019-10-31 20:23 | RADIOLOGY REPORT (SQ) ---
MR ABDOMEN WITHOUT IV CONTRAST HISTORY: Evaluate for biliary obstruction. TECHNIQUE: Multiplanar, multisequence MR imaging of the abdomen was performed without the administration of intravenous gadolinium. MRCP was also performed with 2-D and 3-D reconstructions. COMPARISON: Ultrasound from earlier the same day. FINDINGS: The gallbladder is distended with wall thickening and mild pericholecystic fluid. No gallstones are identified in the gallbladder lumen or the common bile duct. The common bile duct has a maximum diameter of 3 mm and tapers distally. No intrahepatic or pancreatic duct dilatation. The lung bases are clear. No pleural or pericardial effusions. The liver, spleen, pancreas, adrenal glands, and kidneys are unremarkable. No abdominal ascites or adenopathy is seen. The bone marrow has normal signal characteristics. IMPRESSION: 1. No choledocholithiasis. 2. Distended gallbladder with surrounding inflammatory changes suggestive of acute cholecystitis.
[2019-11-01] MEDS: DIAZEPAM 5 MG TABLET PO SCH ×5 (00:10→23:02)
[2019-11-01] MEDS: NORMAL SALINE 1000 ML 1,000 ML IV PRN ×2 (03:07→08:29)
[2019-11-01] MEDS: HEPARIN SOD (PORCINE) 5,000 UNIT/ML 1 ML VIAL SUBCUT SCH ×3 (05:14→21:05)
[2019-11-01 05:42] LABS: HEMATOCRIT 39.1 % (37.9-51.0); HEMOGLOBIN 13.3 g/dL (13.5-17.0); MEAN CORPUSCULAR HEMOGLOBIN 33.8 pg (27.0-33.4); MEAN CORPUSCULAR VOLUME 99 fl (80-97); PLATELET COUNT 117 10^3/uL (150-450); RED BLOOD COUNT 3.94 10^6/uL (4.35-5.55); RED CELL DISTRIBUTION WIDTH 14.9 % (11.5-14.0); WHITE BLOOD COUNT 4.3 10^3/uL (4.0-10.5)
[2019-11-01 05:46] LABS: INTERNATIONAL RATION (INR) 0.91; PROTHROMBIN TIME 12.2 SEC (11.4-15.4)
[2019-11-01 06:03] LABS: ANION GAP 9 (5-19); BLOOD UREA NITROGEN 2 mg/dL (7-20); CALCIUM 7.1 mg/dL (8.4-10.2); CARBON DIOXIDE 23 mmol/L (22-30); CHLORIDE 103 mmol/L (98-107); GLUCOSE 95 mg/dL (75-110)
[2019-11-01 06:17] LABS: POTASSIUM 2.9 mmol/L (3.6-5.0)
[2019-11-01] MEDS ORDERED: POTASSIUM CHLORIDE 10 MEQ TABLET.ER PO ONE (08:00)
[2019-11-01] MEDS: POTASSIUM CHLORIDE 20 MEQ/50 ML RTU IV SCH ×2 (08:30→10:34)
[2019-11-01 08:37] LABS: HEPATITS B SURFACE ANTIGEN Negative (Negative)
[2019-11-01 09:24] LABS: HEPATITIS C VIRUS ANTIBODY <0.1 s/co ratio (0.0-0.9)
[2019-11-01] MEDS: PANTOPRAZOLE SODIUM 40 MG VIAL IV SCH ×2 (10:34→21:08)
[2019-11-01 11:53] LABS: ALBUMIN 2.7 g/dL (3.5-5.0); ALKALINE PHOSPHATASE 586 U/L (38-126); ASPARTATE AMINO TRANSFERASE 432 U/L (17-59); BILIRUBIN,DIRECT 8.2 mg/dL (0.0-0.4); TOTAL PROTEIN 5.2 g/dL (6.3-8.2)
[2019-11-01 12:30] LABS: BILIRUBIN,TOTAL 9.1 mg/dL (0.2-1.3)
[2019-11-01] MEDS: PIPERACILLIN SODIUM/TAZOBACTAM 3.375 GM in NORMAL SALINE 100 ML IV SCH ×3 (14:06→23:02)
--- NOTE | 2019-11-01 14:21 | PDOC PROGRESS REPORT ---
Subjective Progress Note for:: 11/01/19 Subjective:: GENE ANDINO is a 44 year old male with a past medical history of alcohol dependence with continuous use, tobacco dependence, substance abuse, and otherwise limited medical history related to poor healthcare utilization who was admitted to [facility] with cholecystitis, hepatitis, and alcohol dependence with intoxication and withdrawal. Patient was seen on afternoon rounds. He was found resting in bed, comfortably, on room air. He reports continued abdominal discomfort and nausea but no further episodes of emesis. He has been tolerating ice chips without difficult y; requests to advance diet. He does endorse anxiety, tremors, and frequent sweats but has needed minimal PRN Ativan. He denies fever, chest pain, palpitations, dyspnea, orthopnea, cough, and diarrhea. He denies visual and auditory hallucinations. He confirms his intent to go to the [facility] for alcohol rehabilitation following this admission. He has no other questions or concerns at this time. No concerns per nursing. Reason For Visit: ALCOHOL INTOXICATION, ALCOHOLIC HEPATITIS, ACUTE Physical Exam Vital Signs: Temp Pulse Resp BP Pulse Ox 98.0 F 85 18 113/7 L 99 11/01/19 12:00 11/01/19 12:00 11/01/19 12:00 11/01/19 12:00 11/01/19 12:00 Intake & Output 10/31/19 11/01/19 11/02/19 06:59 06:59 06:59 Intake Total 3274.2 3454 1361 Output Total 600 2100 1150 Balance 2674.2 1354 211 Weight 79.7 kg 77.9 kg General appearance: PRESENT: no acute distress, cooperative, well-developed, well-nourished Head exam: PRESENT: atraumatic, normocephalic Eye exam: PRESENT: conjunctiva pink, EOMI, PERRLA, scleral icterus Mouth exam: PRESENT: moist, tongue midline Respiratory exam: PRESENT: clear to auscultation erick, symmetrical, unlabored. ABSENT: rales, rhonchi, wheezes Cardiovascular exam: PRESENT: RRR, +S1, +S2. ABSENT: diastolic murmur, rubs, systolic murmur GI/Abdominal exam: PRESENT: distended, normal bowel sounds, soft, tenderness. ABSENT: guarding, mass, organolmegaly, rebound Rectal exam: PRESENT: deferred Extremities exam: PRESENT: full ROM. ABSENT: calf tenderness, clubbing, pedal edema Musculoskeletal exam: PRESENT: ambulatory Neurological exam: PRESENT: alert, awake, oriented to person, oriented to place, oriented to time, oriented to situation, CN II-XII grossly intact. ABSENT: motor sensory deficit Psychiatric exam: PRESENT: appropriate affect, normal mood. ABSENT: homicidal ideation, suicidal ideation Skin exam: PRESENT: dry, intact, warm. ABSENT: cyanosis, rash Results Laboratory Results: 11/01/19 03:58 11/01/19 03:58 11/01/19 11/01/19 11/01/19 03:58 03:58 03:58 WBC 4.3 RBC 3.94 L Hgb 13.3 L Hct 39.1 MCV 99 H MCH 33.8 H MCHC 34.0 RDW 14.9 H Plt Count 117 L Sodium 134.8 L Potassium 2.9 L* Chloride 103 Carbon Dioxide 23 Anion Gap 9 BUN 2 L Creatinine 0.73 Est GFR ( Amer) > 60 Glucose 95 Calcium 7.1 L Total Bilirubin 9.1 H D AST 432 H Alkaline Phosphatase 586 H Total Protein 5.2 L Albumin 2.7 L 10/30/19 01:45 Creatine Kinase 146 Impressions: Abdomen Ultrasound 10/30/19 09:51 IMPRESSION: 1. Extensive sludge throughout the gallbladder with gallbladder wall thickening and pericholecystic fluid highly suspicious for acute cholecystitis. Recommend surgical consultation. More focal area of wall thickening measuring up to 1.8 x 1.1 x 1.9 cm possibly focal wall thickening although polyp/mass is another consideration. 2. Dilation of the CBD measuring up to 7 mm without obstructing lesion or intrahepatic ductal dilation identified. Recommend correlation for evidence of biliary obstruction. MRCP or ERCP could be considered for further characterization. 3. Hepatomegaly and hepatic steatosis. Abdomen MRI 10/31/19 00:00 IMPRESSION: 1. No choledocholithiasis. 2. Distended gallbladder with surrounding inflammatory changes suggestive of acute cholecystitis. Assessment and Plan - Diagnosis (1) Cholecystitis Is this a current diagnosis for this admission?: Yes Plan: Patient endorses 3 weeks of abdominal discomfort, nausea, and frequent loose stools. He reports that his abdomen became exquisitely tender 1 to 2 days ago. Of note, the patient is acutely intoxicated with a serum EtOH of 314 and evidence of alcohol hepatitis. However, Ultrasound of the abdomen revealed extensive sludge throughout the gallbladder with gallbladder wall thickening and pericholecystic fluid highly suspicious for acute cholecystitis. Recommend follow-up MRCP. MRCP shows distended gallbladder with surrounding inflammatory changes suggestive of acute cholecystitis. Patient is admitted to medical floor on continuous cardiac telemetry. Clear liquid diet. Support with generous IV fluids. Antiemetics and analgesics as needed. Discussed with Dr. Morrissey today. Recommend starting antibiotic therapy. Karina rodriguez is not a candidate for surgical intervention at this time due to alcohol withdrawal and elevated LFTs. (2) Hepatitis Is this a current diagnosis for this admission?: Yes Plan: Multifactorial secondary to acute cholecystitis as well as alcohol dependence with continuous use. Hepatitis panel negative HIV and RPR are negative. MELD Score 17 points Further evaluation of cholecystitis as above. Management of alcohol withdrawal and dependence as below. Follow labs. (3) Alcohol withdrawal Qualifiers: Complication of substance-induced condition: uncomplicated Qualified Code(s): F10.230 - Alcohol dependence with withdrawal, uncomplicated Is this a current diagnosis for this admission?: Yes Plan: Patient will receive generous IV fluids; IV banana bag nightly. He is placed on scheduled p.o. Valium. IV Ativan as needed for anxiety/agitation/withdrawal symptoms. Fall, seizure, aspiration precautions. Discharge planning and patient navigator are consulted. (4) Alcohol dependence with intoxication, unspecified Qualifiers: Complication of substance-induced condition: with unspecified complication Qualified Code(s): F10.229 - Alcohol dependence with intoxication, unspecified Is this a current diagnosis for this admission?: Yes Plan: Cessation encouraged; patient is interested in alcohol detox/inpatient rehabilitation following admission. Discharge planning consulted. (5) High triglycerides Is this a current diagnosis for this admission?: Yes Plan: Triglycerides 3204 Will start on fenofibrate once diet is advanced. Watch for evidence of developing pancreatitis. - Time Time Spent with patient: 35 or more minutes Medications reviewed and adjusted accordingly: Yes Anticipated discharge: Other - inpatient alcohol rehab
[2019-11-01] MEDS: NORMAL SALINE 1000 ML 1,000 ML with POTASSIUM CHLORIDE 20 MEQ, MAGNESIUM SULFATE 8 MEQ,... IV SCH ×5 (18:31)
[2019-11-01] MEDS: LORAZEPAM INJ 2 MG/1 ML VIAL IV PRN ×2 (20:26→23:57)
[2019-11-02] MEDS: LORAZEPAM INJ 2 MG/1 ML VIAL IV PRN ×2 (04:04→20:00)
[2019-11-02] MEDS: NORMAL SALINE 1000 ML 1,000 ML IV PRN (04:07)
[2019-11-02] MEDS: HEPARIN SOD (PORCINE) 5,000 UNIT/ML 1 ML VIAL SUBCUT SCH ×3 (05:12→21:00)
[2019-11-02] MEDS: DIAZEPAM 5 MG TABLET PO SCH (05:26)
[2019-11-02] MEDS: PIPERACILLIN SODIUM/TAZOBACTAM 3.375 GM in NORMAL SALINE 100 ML IV SCH ×4 (05:26→23:17)
[2019-11-02 06:06] LABS: HEMATOCRIT 38.5 % (37.9-51.0); HEMOGLOBIN 13.4 g/dL (13.5-17.0); MEAN CORPUSCULAR HEMOGLOBIN 34.4 pg (27.0-33.4); MEAN CORPUSCULAR HGB CONC 34.8 g/dL (32.0-36.0); MEAN CORPUSCULAR VOLUME 99 fl (80-97); PLATELET COUNT 128 10^3/uL (150-450); RED BLOOD COUNT 3.89 10^6/uL (4.35-5.55); RED CELL DISTRIBUTION WIDTH 14.8 % (11.5-14.0); WHITE BLOOD COUNT 3.9 10^3/uL (4.0-10.5)
[2019-11-02 06:07] LABS: INTERNATIONAL RATION (INR) 0.88
[2019-11-02 06:30] LABS: ALBUMIN 2.7 g/dL (3.5-5.0); ALKALINE PHOSPHATASE 621 U/L (38-126); ANION GAP 8 (5-19); ASPARTATE AMINO TRANSFERASE 431 U/L (17-59); BILIRUBIN,DIRECT 8.7 mg/dL (0.0-0.4); BILIRUBIN,TOTAL 9.8 mg/dL (0.2-1.3); CALCIUM 7.5 mg/dL (8.4-10.2); CARBON DIOXIDE 20 mmol/L (22-30); CHLORIDE 109 mmol/L (98-107); GLUCOSE 92 mg/dL (75-110); POTASSIUM 3.5 mmol/L (3.6-5.0); TOTAL PROTEIN 5.3 g/dL (6.3-8.2)
[2019-11-02 06:37] LABS: BLOOD UREA NITROGEN < 2 mg/dL (7-20)
[2019-11-02] MEDS: PANTOPRAZOLE SODIUM 40 MG VIAL IV SCH ×2 (09:15→21:02)
[2019-11-02] MEDS: DIAZEPAM 2 MG TABLET PO SCH ×3 (11:28→23:17)
--- NOTE | 2019-11-02 12:40 | PDOC PROGRESS REPORT ---
Subjective Progress Note for:: 11/02/19 Subjective:: GENE ANDINO is a 44 year old male with a past medical history of alcohol dependence with continuous use, tobacco dependence, substance abuse, and otherwise limited medical history related to poor healthcare utilization who was admitted to [facility] with cholecystitis, hepatitis, and alcohol dependence with intoxication and withdrawal. Patient was seen on morning rounds. He was found resting in bed, comfortably, on room air. He reports that his abdominal discomfort is significantly improved. He has tolerated clear liquid diet without increased discomfort, nausea or vomiting. He asks to advance his diet today. He denies fever, chest pain, palpitations, dyspnea, orthopnea, cough, and diarrhea. He denies visual and auditory hallucinations. Overall, feeling much better. He confirms his intent to go to the [facility] for alcohol rehabilitation following this admission. He has no other questions or concerns at this time. No concerns per nursing. Reason For Visit: ALCOHOL INTOXICATION, ALCOHOLIC HEPATITIS, ACUTE Physical Exam Vital Signs: Temp Pulse Resp BP Pulse Ox 97.4 F 94 19 104/67 99 11/02/19 08:32 11/02/19 08:32 11/02/19 08:32 11/02/19 08:32 11/02/19 08:32 Intake & Output 11/01/19 11/02/19 11/03/19 06:59 06:59 06:59 Intake Total 3454 3691 Output Total 2100 2250 Balance 1354 1441 Weight 77.9 kg 79.9 kg General appearance: PRESENT: no acute distress, cooperative, well-developed, well-nourished Head exam: PRESENT: atraumatic, normocephalic Eye exam: PRESENT: conjunctiva pink, EOMI, PERRLA, scleral icterus - Slight dec rease Ear exam: PRESENT: normal external ear exam Mouth exam: PRESENT: moist, tongue midline Respiratory exam: PRESENT: clear to auscultation erick, symmetrical, unlabored. ABSENT: rales, rhonchi, wheezes Cardiovascular exam: PRESENT: RRR, +S1, +S2, tachycardia. ABSENT: diastolic murmur, rubs, systolic murmur GI/Abdominal exam: PRESENT: ascites, normal bowel sounds, soft. ABSENT: distended, guarding, mass, organolmegaly, rebound, tenderness Rectal exam: PRESENT: deferred Extremities exam: PRESENT: full ROM. ABSENT: calf tenderness, clubbing, pedal edema Neurological exam: PRESENT: alert, awake, oriented to person, oriented to place, oriented to time, oriented to situation, CN II-XII grossly intact. ABSENT: motor sensory deficit Psychiatric exam: PRESENT: appropriate affect, normal mood. ABSENT: homicidal ideation, suicidal ideation Skin exam: PRESENT: dry, intact, jaundice - Decreased, warm. ABSENT: cyanosis, rash Results Laboratory Results: 11/02/19 05:23 11/02/19 05:23 11/02/19 11/02/19 05:23 05:23 WBC 3.9 L RBC 3.89 L Hgb 13.4 L Hct 38.5 MCV 99 H MCH 34.4 H MCHC 34.8 RDW 14.8 H Plt Count 128 L Sodium 137.0 Potassium 3.5 L Chloride 109 H Carbon Dioxide 20 L Anion Gap 8 BUN < 2 L Creatinine 0.69 Est GFR ( Amer) > 60 Glucose 92 Calcium 7.5 L Total Bilirubin 9.8 H AST 431 H Alkaline Phosphatase 621 H Total Protein 5.3 L Albumin 2.7 L Lipase 116.6 10/30/19 01:45 Creatine Kinase 146 Impressions: Abdomen Ultrasound 10/30/19 09:51 IMPRESSION: 1. Extensive sludge throughout the gallbladder with gallbladder wall thickening and pericholecystic fluid highly suspicious for acute cholecystitis. Recommend surgical consultation. More focal area of wall thickening measuring up to 1.8 x 1.1 x 1.9 cm possibly focal wall thickening although polyp/mass is another consideration. 2. Dilation of the CBD measuring up to 7 mm without obstructing lesion or intrahepatic ductal dilation identified. Recommend correlation for evidence of biliary obstruction. MRCP or ERCP could be considered for further charact erization. 3. Hepatomegaly and hepatic steatosis. Abdomen MRI 10/31/19 00:00 IMPRESSION: 1. No choledocholithiasis. 2. Distended gallbladder with surrounding inflammatory changes suggestive of acute cholecystitis. Assessment and Plan - Diagnosis (1) Cholecystitis Is this a current diagnosis for this admission?: Yes Plan: Patient endorses 3 weeks of abdominal discomfort, nausea, and frequent loose stools. He reports that his abdomen became exquisitely tender 1 to 2 days prior to admission. Of note, the patient was intoxicated with a serum EtOH of 314 and evidence of alcohol hepatitis. Ultrasound of the abdomen revealed extensive sludge throughout the gallbladder with gallbladder wall thickening and pericholecystic fluid highly suspicious for acute cholecystitis. Recommend follow-up MRCP. MRCP shows distended gallbladder with surrounding inflammatory changes suggestive of acute cholecystitis. Patient is admitted to medical floor on continuous cardiac telemetry. Advance to soft, low residue diet today. Support with generous IV fluids. Antiemetics and analgesics as needed. Discussed with Dr. Morrissey. Recommends antibiotic therapy. Patient is not a candidate for surgical intervention at this time due to alcohol withdrawal and elevated LFTs. (2) Hepatitis Is this a current diagnosis for this admission?: Yes Plan: Multifactorial secondary to acute cholecystitis as well as alcohol dependence with continuous use. Hepatitis panel negative HIV and RPR are negative. MELD Score 17 points Further evaluation of cholecystitis as above. Management of alcohol withdrawal and dependence as below. Follow labs. (3) Alcohol withdrawal Qualifiers: Complication of substance-induced condition: uncomplicated Qualified Code(s): F10.230 - Alcohol dependence with withdrawal, uncomplicated Is this a current diagnosis for this admission?: Yes Plan: Patient will receive generous IV fluids; IV banana bag nightly. He is placed on scheduled p.o. Valium; have decreased dose today. IV Ativan as needed for anxiety/agitation/withdrawal symptoms. Fall, seizure, aspiration precautions. Discharge planning and patient navigator are consulted. (4) Alcohol dependence with intoxication, unspecified Qualifiers: Complication of substance-induced condition: with unspecified complication Qualified Code(s): F10.229 - Alcohol dependence with intoxication, unspecified Is this a current diagnosis for this admission?: Yes Plan: Cessation encouraged; patient is interested in alcohol detox/inpatient rehabilitation following admission. Discharge planning consulted. (5) High triglycerides Is this a current diagnosis for this admission?: Yes Plan: Triglycerides 3204 Will start on fenofibrate once diet is advanced. Watch for evidence of developing pancreatitis. - Time Time Spent with patient: 15-24 minutes Medications reviewed and adjusted accordingly: Yes Anticipated discharge: Other - Alcohol rehab. Within: within 48 hours
[2019-11-02] MEDS: NORMAL SALINE 1000 ML 1,000 ML with POTASSIUM CHLORIDE 20 MEQ, MAGNESIUM SULFATE 8 MEQ,... IV SCH ×5 (19:22)
[2019-11-03] MEDS: LORAZEPAM INJ 2 MG/1 ML VIAL IV PRN ×4 (00:11→21:22)
[2019-11-03] MEDS: HEPARIN SOD (PORCINE) 5,000 UNIT/ML 1 ML VIAL SUBCUT SCH ×3 (05:11→21:05)
[2019-11-03] MEDS: DIAZEPAM 2 MG TABLET PO SCH (05:18)
[2019-11-03] MEDS: PIPERACILLIN SODIUM/TAZOBACTAM 3.375 GM in NORMAL SALINE 100 ML IV SCH ×4 (05:18→23:23)
[2019-11-03] MEDS: NORMAL SALINE 1000 ML 1,000 ML IV PRN ×3 (05:21→21:22)
[2019-11-03 06:07] LABS: HEMATOCRIT 36.6 % (37.9-51.0); HEMOGLOBIN 12.5 g/dL (13.5-17.0); MEAN CORPUSCULAR HEMOGLOBIN 34.2 pg (27.0-33.4); MEAN CORPUSCULAR HGB CONC 34.2 g/dL (32.0-36.0); MEAN CORPUSCULAR VOLUME 100 fl (80-97); PLATELET COUNT 143 10^3/uL (150-450); RED BLOOD COUNT 3.66 10^6/uL (4.35-5.55); RED CELL DISTRIBUTION WIDTH 15.3 % (11.5-14.0); WHITE BLOOD COUNT 3.9 10^3/uL (4.0-10.5)
[2019-11-03 06:13] LABS: INTERNATIONAL RATION (INR) 0.91; PROTHROMBIN TIME 12.2 SEC (11.4-15.4)
[2019-11-03 06:29] LABS: ALBUMIN 2.8 g/dL (3.5-5.0); ALKALINE PHOSPHATASE 685 U/L (38-126); ANION GAP 9 (5-19); ASPARTATE AMINO TRANSFERASE 577 U/L (17-59); BILIRUBIN,DIRECT 7.5 mg/dL (0.0-0.4); BILIRUBIN,TOTAL 8.5 mg/dL (0.2-1.3); CARBON DIOXIDE 25 mmol/L (22-30); CHLORIDE 105 mmol/L (98-107); GLUCOSE 137 mg/dL (75-110); POTASSIUM 3.2 mmol/L (3.6-5.0); TOTAL PROTEIN 5.2 g/dL (6.3-8.2)
[2019-11-03 06:31] LABS: BLOOD UREA NITROGEN < 2 mg/dL (7-20)
[2019-11-03] MEDS ORDERED: POTASSIUM CHLORIDE 10 MEQ TABLET.ER PO ONE (09:00)
[2019-11-03] MEDS: FOLIC ACID 1 MG TABLET PO SCH (10:50)
[2019-11-03] MEDS: THIAMINE HCL 100 MG TABLET PO SCH (10:50)
--- NOTE | 2019-11-03 11:52 | PDOC PROGRESS REPORT ---
Subjective Progress Note for:: 11/03/19 Subjective:: GENE ANDINO is a 44 year old male with a past medical history of alcohol dependence with continuous use, tobacco dependence, substance abuse, and otherwise limited medical history related to poor healthcare utilization who was admitted 10/30/19 with cholecystitis, hepatitis, and alcohol dependence with intoxication and withdrawal. Patient was seen on morning rounds. He was found resting in bed, comfortably, on room air. He reports that his abdominal discomfort is significantly improved. He has tolerated bland/soft diet without increased discomfort, nausea or vomiting. He asks to advance his diet today. He denies fever, chest pain, palpitations, dyspnea, orthopnea, cough, and diarrhea. He denies visual and auditory hallucinations. Overall, feeling much better. He confirms his intent to go to the [facility] for alcohol rehabilitation following this admission. He has no other questions or concerns at this time. No concerns per nursing. Reason For Visit: ALCOHOL INTOXICATION, ALCOHOLIC HEPATITIS, ACUTE Physical Exam Vital Signs: Temp Pulse Resp BP Pulse Ox 98.0 F 99 20 117/88 H 97 11/03/19 07:42 11/03/19 07:42 11/03/19 07:42 11/03/19 07:42 11/03/19 07:42 Intake & Output 11/02/19 11/03/19 11/04/19 06:59 06:59 06:59 Intake Total 4714 3620 688 Output Total 2250 3300 Balance 2464 320 688 Weight 79.9 kg 80.2 kg General appearance: PRESENT: no acute distress, cooperative, well-developed, well-nourished Head exam: PRESENT: atraumatic, normocephalic Eye exam: PRESENT: conjunctiva pink, EOMI, PERRLA, scleral icterus - improved Mouth exam: PRESENT: moist, tongue midline Respiratory exam: PRESENT: clear to auscultation erick, symmetrical, unlabored. ABSENT: rales, rhonchi, wheezes Cardiovascular exam: PRESENT: RRR, +S1, +S2. ABSENT: diastolic murmur, rubs, systolic murmur Vascular exam: PRESENT: normal capillary refill GI/Abdominal exam: PRESENT: distended, normal bowel sounds, soft. ABSENT: g uarding, mass, organolmegaly, rebound, tenderness Rectal exam: PRESENT: deferred Extremities exam: PRESENT: full ROM. ABSENT: calf tenderness, clubbing, pedal edema Musculoskeletal exam: PRESENT: ambulatory Neurological exam: PRESENT: alert, awake, oriented to person, oriented to place, oriented to time, oriented to situation, CN II-XII grossly intact. ABSENT: motor sensory deficit Psychiatric exam: PRESENT: appropriate affect, normal mood. ABSENT: homicidal ideation, suicidal ideation Skin exam: PRESENT: dry, intact, warm. ABSENT: cyanosis, jaundice - resolved, rash Results Laboratory Results: 11/03/19 05:43 11/03/19 05:43 11/03/19 11/03/19 05:43 05:43 WBC 3.9 L RBC 3.66 L Hgb 12.5 L Hct 36.6 L MCV 100 H MCH 34.2 H MCHC 34.2 RDW 15.3 H Plt Count 143 L Sodium 138.8 Potassium 3.2 L Chloride 105 Carbon Dioxide 25 Anion Gap 9 BUN < 2 L Creatinine 0.71 Est GFR ( Amer) > 60 Glucose 137 H Calcium 8.0 L Total Bilirubin 8.5 H AST 577 H Alkaline Phosphatase 685 H Total Protein 5.2 L Albumin 2.8 L 10/30/19 01:45 Creatine Kinase 146 Impressions: Abdomen Ultrasound 10/30/19 09:51 IMPRESSION: 1. Extensive sludge throughout the gallbladder with gallbladder wall thickening and pericholecystic fluid highly suspicious for acute cholecystitis. Recommend surgical consultation. More focal area of wall thickening measuring up to 1.8 x 1.1 x 1.9 cm possibly focal wall thickening although polyp/mass is another consideration. 2. Dilation of the CBD measuring up to 7 mm without obstructing lesion or intrahepatic ductal dilation identified. Recommend correlation for evidence of biliary obstruction. MRCP or ERCP could be considered for further characterization. 3. Hepatomegaly and hepatic steatosis. Abdomen MRI 10/31/19 00:00 IMPRESSION: 1. No choledocholithiasis. 2. Distended gallbladder with surrounding inflammatory changes suggestive of acute cholecystitis. Assessment and Plan - Diagnosis (1) Cholecystitis Is this a current diagnosis for this admission?: Yes Plan: Patient endorses 3 weeks of abdominal discomfort, nausea, and frequent loose stools. He reports that his abdomen became exquisitely tender 1 to 2 days prior to admission. Of note, the patient was intoxicated with a serum EtOH of 314 and evidence of alcohol hepatitis. Ultrasound of the abdomen revealed extensive sludge throughout the gallbladder with gallbladder wall thickening and pericholecystic fluid highly suspicious for acute cholecystitis. Recommend follow-up MRCP. MRCP shows distended gallbladder with surrounding inflammatory changes suggestive of acute cholecystitis. Patient is admitted to medical floor on continuous cardiac telemetry. Advance diet today. Support with generous IV fluids. Antiemetics and analgesics as needed. Discussed with Dr. Morrissey. Recommends antibiotic therapy. Patient is not a candidate for surgical intervention at this time due to alcohol withdrawal and elevated LFTs. Continue IV Zosyn; Day #3 (2) Hepatitis Is this a current diagnosis for this admission?: Yes Plan: Multifactorial secondary to acute cholecystitis as well as alcohol dependence with continuous use. Hepatitis panel negative HIV and RPR are negative. MELD Score 17 points Further management of cholecystitis as above. Management of alcohol withdrawal and dependence as below. Follow labs. (3) Alcohol withdrawal Qualifiers: Complication of substance-induced condition: uncomplicated Qualified Code(s): F10.230 - Alcohol dependence with withdrawal, uncomplicated Is this a current diagnosis for this admission?: Yes Plan: Patient will receive generous IV fluids; IV banana bag nightly. Discontinue scheduled valium today IV Ativan as needed for anxiety/agitation/withdrawal symptoms. Fall, seizure, aspiration precautions. Discharge planning and patient navigator are consulted. (4) Alcohol dependence with intoxication, unspecified Qualifiers: Complication of substance-induced condition: with unspecified complication Qualified Code(s): F10.229 - Alcohol dependence with intoxication, unspecified Is this a current diagnosis for this admission?: Yes Plan: Cessation encouraged; patient is interested in alcohol detox/inpatient rehabilitation following admission. Daily folic acid and thiamin supplementation. Discharge planning consulted. (5) High triglycerides Is this a current diagnosis for this admission?: Yes Plan: Triglycerides 3204 Will start on fenofibrate once diet is advanced. Watch for evidence of developing pancreatitis. - Time Time Spent with patient: 25-34 minutes Medications reviewed and adjusted accordingly: Yes Anticipated discharge: Other - inpatient alcohol rehab Within: within 72 hours
[2019-11-04] MEDS: LORAZEPAM INJ 2 MG/1 ML VIAL IV PRN ×4 (00:38→22:15)
[2019-11-04] MEDS: HEPARIN SOD (PORCINE) 5,000 UNIT/ML 1 ML VIAL SUBCUT SCH ×3 (05:03→22:23)
[2019-11-04] MEDS: PANTOPRAZOLE SODIUM 40 MG TABLET.DR PO SCH (05:06)
[2019-11-04] MEDS: PIPERACILLIN SODIUM/TAZOBACTAM 3.375 GM in NORMAL SALINE 100 ML IV SCH ×4 (05:06→23:28)
[2019-11-04] MEDS: NORMAL SALINE 1000 ML 1,000 ML IV PRN ×2 (05:08→17:05)
[2019-11-04 05:38] LABS: HEMATOCRIT 35.9 % (37.9-51.0); HEMOGLOBIN 12.6 g/dL (13.5-17.0); MEAN CORPUSCULAR HEMOGLOBIN 35.1 pg (27.0-33.4); MEAN CORPUSCULAR VOLUME 100 fl (80-97); PLATELET COUNT 199 10^3/uL (150-450); RED BLOOD COUNT 3.58 10^6/uL (4.35-5.55); WHITE BLOOD COUNT 5.5 10^3/uL (4.0-10.5)
[2019-11-04 05:58] LABS: ALBUMIN 2.7 g/dL (3.5-5.0); ALKALINE PHOSPHATASE 757 U/L (38-126); ANION GAP 9 (5-19); ASPARTATE AMINO TRANSFERASE 708 U/L (17-59); BILIRUBIN,DIRECT 6.1 mg/dL (0.0-0.4); BILIRUBIN,TOTAL 7.1 mg/dL (0.2-1.3); BLOOD UREA NITROGEN 3 mg/dL (7-20); CALCIUM 7.8 mg/dL (8.4-10.2); CARBON DIOXIDE 23 mmol/L (22-30); CHLORIDE 106 mmol/L (98-107); GLUCOSE 118 mg/dL (75-110); POTASSIUM 3.7 mmol/L (3.6-5.0)
[2019-11-04] MEDS: FOLIC ACID 1 MG TABLET PO SCH (09:19)
[2019-11-04] MEDS: THIAMINE HCL 100 MG TABLET PO SCH (09:19)
--- NOTE | 2019-11-04 14:43 | PDOC PROGRESS REPORT ---
Subjective Progress Note for:: 11/04/19 Subjective:: GENE ANDINO is a 44 year old male with a past medical history of alcohol dependence with continuous use, tobacco dependence, substance abuse, and otherwise limited medical history related to poor healthcare utilization who was admitted 10/30/19 with cholecystitis, hepatitis, and alcohol dependence with intoxication and withdrawal. Patient was seen on morning rounds. He was found resting in bed, comfortably, on room air. He has tolerated a regular diet without increased discomfort, nausea or vomiting. He denies fever, chest pain, palpitations, dyspnea, orthopnea, cough, and diarrhea. He denies visual and auditory hallucinations. Overall, feeling much better. He confirms his intent to go to the [facility] for alcohol rehabilitation following this admission. He has no other questions or concerns at this time. No concerns per nursing. Reason For Visit: ALCOHOL INTOXICATION, ALCOHOLIC HEPATITIS, ACUTE Physical Exam Vital Signs: Temp Pulse Resp BP Pulse Ox 97.8 F 81 16 123/86 H 99 11/04/19 11:31 11/04/19 11:31 11/04/19 11:31 11/04/19 11:31 11/04/19 11:31 Intake & Output 11/03/19 11/04/19 11/05/19 06:59 06:59 06:59 Intake Total 3620 5965 340 Output Total 3300 5025 1150 Balance 320 940 -810 Weight 80.2 kg 83 kg General appearance: PRESENT: no acute distress, cooperative, well-developed, well-nourished Head exam: PRESENT: atraumatic, normocephalic Eye exam: PRESENT: conjunctiva pink, EOMI, PERRLA, scleral icterus - significan tly improved Ear exam: PRESENT: normal external ear exam Mouth exam: PRESENT: moist, tongue midline Respiratory exam: PRESENT: clear to auscultation erick, symmetrical, unlabored. ABSENT: rales, rhonchi, wheezes Cardiovascular exam: PRESENT: RRR, +S1, +S2. ABSENT: diastolic murmur, rubs, systolic murmur Pulses: PRESENT: normal dorsalis pedis pul Vascular exam: PRESENT: normal capillary refill GI/Abdominal exam: PRESENT: normal bowel sounds, soft. ABSENT: distended, guarding, mass, organolmegaly, rebound, tenderness Rectal exam: PRESENT: deferred Extremities exam: PRESENT: full ROM. ABSENT: calf tenderness, clubbing, pedal edema Neurological exam: PRESENT: alert, awake, oriented to person, oriented to place, oriented to time, oriented to situation, CN II-XII grossly intact. ABSENT: motor sensory deficit Psychiatric exam: PRESENT: appropriate affect, normal mood. ABSENT: homicidal ideation, suicidal ideation Skin exam: PRESENT: dry, intact, warm. ABSENT: cyanosis, rash Results Laboratory Results: 11/04/19 04:59 11/04/19 04:59 11/04/19 11/04/19 04:59 04:59 WBC 5.5 RBC 3.58 L Hgb 12.6 L Hct 35.9 L MCV 100 H MCH 35.1 H MCHC 35.0 RDW 15.0 H Plt Count 199 Sodium 137.8 Potassium 3.7 Chloride 106 Carbon Dioxide 23 Anion Gap 9 BUN 3 L Creatinine 0.75 Est GFR ( Amer) > 60 Glucose 118 H Calcium 7.8 L Total Bilirubin 7.1 H AST 708 H Alkaline Phosphatase 757 H Total Protein 5.0 L Albumin 2.7 L 10/30/19 01:45 Creatine Kinase 146 Impressions: Abdomen Ultrasound 10/30/19 09:51 IMPRESSION: 1. Extensive sludge throughout the gallbladder with gallbladder wall thickening and pericholecystic fluid highly suspicious for acute cholecystitis. Recommend surgical consultation. More focal area of wall thickening measuring up to 1.8 x 1.1 x 1.9 cm possibly focal wall thickening although polyp/mass is another consideration. 2. Dilation of the CBD measuring up to 7 mm without obstructing lesion or intrahepatic ductal dilation identified. Recommend correlation for evidence of biliary obstruction. MRCP or ERCP could be considered for further characterization. 3. Hepatomegaly and hepatic steatosis. Abdomen MRI 10/31/19 00:00 IMPRESSION: 1. No choledocholithiasis. 2. Distended gallbladder with surrounding inflammatory changes suggestive of acute cholecystitis. Assessment and Plan - Diagnosis (1) Cholecystitis Is this a current diagnosis for this admission?: Yes Plan: Patient endorses 3 weeks of abdominal discomfort, nausea, and frequent loose stools. He reports that his abdomen became exquisitely tender 1 to 2 days prior to admission. Of note, the patient was intoxicated with a serum EtOH of 314 and evidence of alcohol hepatitis. Ultrasound of the abdomen revealed extensive sludge throughout the gallbladder w ith gallbladder wall thickening and pericholecystic fluid highly suspicious for acute cholecystitis. Recommend follow-up MRCP. MRCP shows distended gallbladder with surrounding inflammatory changes s uggestive of acute cholecystitis. Patient is admitted to medical floor on continuous cardiac telemetry. Advance diet today. Support with generous IV fluids. Antiemetics and analgesics as needed. Discussed with Dr. Morrissey. Recommends antibiotic therapy. Patient is not a candidate for surgical intervention at this time due to alcohol withdrawal and elevated LFTs. Continue IV Zosyn; Day #4 (2) Hepatitis Is this a current diagnosis for this admission?: Yes Plan: Multifactorial secondary to acute cholecystitis as well as alcohol dependence with continuous use. Hepatitis panel negative HIV and RPR are negative. MELD Score 17 points Further management of cholecystitis as above. Management of alcohol withdrawal and dependence as below. Consider prednisolone. Follow labs. Discussed with Dr. Ortega today; total bili is trending down, but AST/ALT, and alk phos trending up. Recommends continued admission with IV fluids and supportive care until remaining LFTs begin to trend down as well. Nearing threshold for discharge to [facility]. (3) Alcohol withdrawal Qualifiers: Complication of substance-induced condition: uncomplicated Qualified Code(s): F10.230 - Alcohol dependence with withdrawal, uncomplicated Is this a current diagnosis for this admission?: Yes Plan: IV Ativan as needed for anxiety/agitation/withdrawal symptoms. Fall, seizure, aspiration precautions. Discharge planning and patient navigator are consulted. (4) Alcohol dependence with intoxication, unspecified Qualifiers: Complication of substance-induced condition: with unspecified complication Qualified Code(s): F10.229 - Alcohol dependence with intoxication, unspecified Is this a current diagnosis for this admission?: Yes Plan: Cessation encouraged; patient is interested in alcohol detox/inpatient rehabilitation following admission. Daily folic acid and thiamin supplementation. Discharge planning consulted. (5) High triglycerides Is this a current diagnosis for this admission?: Yes Plan: Triglycerides 3204 Will start on fenofibrate Watch for evidence of developing pancreatitis. - Time Time Spent with patient: 25-34 minutes Medications reviewed and adjusted accordingly: Yes Anticipated discharge: Other - [facility] Within: Other - Pending improvement in LFTs
[2019-11-04] MEDS: FENOFIBRATE NANOCRYSTALLIZED 145 MG TABLET PO SCH (17:04)
[2019-11-05] MEDS: LORAZEPAM INJ 2 MG/1 ML VIAL IV PRN ×4 (03:14→21:13)
[2019-11-05] MEDS: NORMAL SALINE 1000 ML 1,000 ML IV PRN ×3 (03:21→21:14)
[2019-11-05 06:01] LABS: ALBUMIN 2.8 g/dL (3.5-5.0); ALKALINE PHOSPHATASE 727 U/L (38-126); ANION GAP 6 (5-19); ASPARTATE AMINO TRANSFERASE 477 U/L (17-59); BILIRUBIN,DIRECT 4.4 mg/dL (0.0-0.4); BILIRUBIN,TOTAL 5.3 mg/dL (0.2-1.3); BLOOD UREA NITROGEN 6 mg/dL (7-20); CALCIUM 8.5 mg/dL (8.4-10.2); CARBON DIOXIDE 27 mmol/L (22-30); CHLORIDE 104 mmol/L (98-107); GLUCOSE 120 mg/dL (75-110); POTASSIUM 4.5 mmol/L (3.6-5.0); TOTAL PROTEIN 5.3 g/dL (6.3-8.2)
[2019-11-05] MEDS: PANTOPRAZOLE SODIUM 40 MG TABLET.DR PO SCH (06:24)
[2019-11-05] MEDS: PIPERACILLIN SODIUM/TAZOBACTAM 3.375 GM in NORMAL SALINE 100 ML IV SCH ×4 (06:24→23:40)
[2019-11-05] MEDS: HEPARIN SOD (PORCINE) 5,000 UNIT/ML 1 ML VIAL SUBCUT SCH ×3 (06:25→21:17)
[2019-11-05] MEDS: FOLIC ACID 1 MG TABLET PO SCH (12:21)
[2019-11-05] MEDS: FENOFIBRATE NANOCRYSTALLIZED 145 MG TABLET PO SCH (12:22)
[2019-11-05] MEDS: THIAMINE HCL 100 MG TABLET PO SCH (12:22)
--- NOTE | 2019-11-05 16:07 | PDOC PROGRESS REPORT ---
Subjective Progress Note for:: 11/05/19 Reason For Visit: ALCOHOL INTOXICATION, ALCOHOLIC HEPATITIS, ACUTE Patient is admitted for alcohol abuse tobacco abuse substance abuse and alcoholic hepatitis According to DSS patient is not eligible for Medicaid Temperature 98.1 pulse 86 blood pressure 122/93 O2 sat 98% on room air Patient is tolerating liquids and diet will be advanced as tolerated. Patient's total bilirubin is come down to 5.3 direct bilirubin is down to 4.2 AST is finally coming down to 477 alkaline Jes[place] is also coming down to 727 and ALT is down to 270 Liver functions are trending down patient is tolerating his diet Patient is wanting to go to rehab at discharge. "Will check with discharge planning, possibly DC tomorrow? Physical Exam Vital Signs: Temp Pulse Resp BP Pulse Ox 97.3 F 89 24 H 126/78 H 98 11/05/19 12:00 11/05/19 12:00 11/05/19 12:00 11/05/19 12:00 11/05/19 12:00 Intake & Output 11/04/19 11/05/19 11/06/19 06:59 06:59 06:59 Intake Total 5965 4580 1476 Output Total 5025 4591 1700 Balance 940 55 -224 Weight 83 kg 81.6 kg 81.6 kg Results Laboratory Results: 11/04/19 04:59 11/05/19 04:49 11/05/19 04:49 Sodium 137.3 Potassium 4.5 Chloride 104 Carbon Dioxide 27 Anion Gap 6 BUN 6 L Creatinine 0.85 Est GFR ( Amer) > 60 Glucose 120 H Calcium 8.5 Total Bilirubin 5.3 H AST 477 H Alkaline Phosphatase 727 H Total Protein 5.3 L Albumin 2.8 L 10/30/19 01:45 Creatine Kinase 146 Impressions: Abdomen Ultrasound 10/30/19 09:51 IMPRESSION: 1. Extensive sludge throughout the gallbladder with gallbladder wall thickening and pericholecystic fluid highly suspicious for acute cholecystitis. Recommend surgical consultation. More focal area of wall thickening measuring up to 1.8 x 1.1 x 1.9 cm possibly focal wall thickening although polyp/mass is another consideration. 2. Dilation of the CBD measuring up to 7 mm without obstructing lesion or intrahepatic ductal dilation identified. Recommend correlation for evidence of biliary obstruction. MRCP or ERCP could be considered for further characterization. 3. Hepatomegaly and hepatic steatosis. Abdomen MRI 10/31/19 00:00 IMPRESSION: 1. No choledocholithiasis. 2. Distended gallbladder with surrounding inflammatory changes suggestive of acute cholecystitis. Assessment and Plan - Diagnosis (1) Acute hepatitis Is this a current diagnosis for this admission?: Yes (2) Alcohol abuse Is this a current diagnosis for this admission?: Yes (3) Alcohol dependence with intoxication, unspecified Qualifiers: Complication of substance-induced condition: with unspecified complication Qualified Code(s): F10.229 - Alcohol dependence with intoxication, unspecified Is this a current diagnosis for this admission?: Yes (4) Alcohol withdrawal Qualifiers: Complication of substance-induced condition: uncomplicated Qualified Code(s): F10.230 - Alcohol dependence with withdrawal, uncomplicated Is this a current diagnosis for this admission?: Yes (5) Cholecystitis Is this a current diagnosis for this admission?: Yes (6) Hepatitis Is this a current diagnosis for this admission?: Yes (7) High triglycerides Is this a current diagnosis for this admission?: Yes - Plan Summary Summary: 11/05/19 Patient's diet will be advanced. If tolerated will plan to discharge tomorrow. Possibly detox if he qualifies. Temp 98 1 pulse 86, blood pressure 122/93 O2 sat 98% on room air. Liver functions are trending down Patient appears to be medically stable - Time Time Spent with patient: 25-34 minutes
[2019-11-06] MEDS: LORAZEPAM INJ 2 MG/1 ML VIAL IV PRN ×4 (00:58→12:54)
[2019-11-06] MEDS: HEPARIN SOD (PORCINE) 5,000 UNIT/ML 1 ML VIAL SUBCUT SCH (05:21)
[2019-11-06 05:50] LABS: ALKALINE PHOSPHATASE 673 U/L (38-126); ANION GAP 11 (5-19); ASPARTATE AMINO TRANSFERASE 352 U/L (17-59); BILIRUBIN,DIRECT 3.8 mg/dL (0.0-0.4); BILIRUBIN,TOTAL 4.6 mg/dL (0.2-1.3); BLOOD UREA NITROGEN 9 mg/dL (7-20); CALCIUM 8.8 mg/dL (8.4-10.2); CARBON DIOXIDE 23 mmol/L (22-30); CHLORIDE 105 mmol/L (98-107); GLUCOSE 96 mg/dL (75-110); POTASSIUM 4.6 mmol/L (3.6-5.0); TOTAL PROTEIN 5.8 g/dL (6.3-8.2)
[2019-11-06] MEDS: PIPERACILLIN SODIUM/TAZOBACTAM 3.375 GM in NORMAL SALINE 100 ML IV SCH ×2 (07:13→12:00)
[2019-11-06] MEDS: PANTOPRAZOLE SODIUM 40 MG TABLET.DR PO SCH (07:14)
--- NOTE | 2019-11-06 09:28 | PDOC DISCHARGE SUMMARY ---
Impression - Admit/DC Date/PCP Admission Date/Primary Care Provider: 10/30/19 13:02 Discharge Date: 11/06/19 - Discharge Diagnosis (1) Acute hepatitis Is this a current diagnosis for this admission?: Yes (2) Alcohol abuse Is this a current diagnosis for this admission?: Yes (3) Alcohol dependence with intoxication, unspecified Is this a current diagnosis for this admission?: Yes (4) Alcohol withdrawal Is this a current diagnosis for this admission?: Yes (5) Cholecystitis Is this a current diagnosis for this admission?: Yes (6) Hepatitis Is this a current diagnosis for this admission?: Yes (7) High triglycerides Is this a current diagnosis for this admission?: Yes - Assessment Summary: 11/05/19 Patient's diet will be advanced. If tolerated will plan to discharge tomorrow. Possibly detox if he qualifies. Temp 98 1 pulse 86, blood pressure 122/93 O2 sat 98% on room air. Liver functions are trending down Patient appears to be medically stable 11/06/2019 Patient is tolerating p.o.'s well with no vomiting no abdominal pain Today once labs again are improving to where he is stable for discharge sodium 138, potassium 4.6 renal functions are normal total bilirubin is down to 4.6 direct bilirubin is down to 3.8 AST is down to 352 ALT is down to 238 alkaline phos is down to 673 Patient was sent out on a prescription for TriCor 145 1 tablet daily for elevated triglycerides. He was told to stop drinking alcohol She was admitted on 212 for abdominal pain secondary to alcohol abuse liver functions were elevated. Serum alcohol level was 314 Ultrasound showed gallbladder disease with wall thickening and lamin-cholecystic fluid suspicious for acute cholecystitis Recommended by surgery MRCP was performed as recommended by surgery but never actually seen by surgery. MRCP showed distended gallbladder with surrounding inflammatory changes suggestive of acute cholecystitis Once again the patient was discussed with surgery but never seen by surgery and they recommended starting antibiotic therapy Patient apparently was not a good surgical candidate due to alcohol withdrawal and elevated liver functions She will need to follow-up with general surgery concerning his gallbladder he has further problems - Additional Information Resuscitation Status: Full Code Discharge Diet: As Tolerated Discharge Activity: Activity As Tolerated Referrals: [facility] [Other] Prescriptions: Fenofibrate Nanocrystallized [Tricor 145 mg Tablet] 145 mg PO DAILY 30 Days #30 tablet Home Medications: Fenofibrate Nanocrystallized [Tricor 145 mg Tablet] 145 mg PO DAILY 30 Days #30 tablet 11/06/19 History of Present Illiness History of Present Illness: GENE ANDINO is a 44 year old male Physical Exam Vital Signs: Temp Pulse Resp BP Pulse Ox 97.8 F 80 16 104/66 96 11/06/19 08:00 11/06/19 08:00 11/06/19 08:00 11/06/19 08:00 11/06/19 08:00 Intake & Output 11/05/19 11/06/19 11/07/19 06:59 06:59 06:59 Intake Total 4580 4376 Output Total 4584 8850 Balance 55 -324 Weight 81.6 kg 81.6 kg Results Laboratory Results: WBC 5.5 10^3/uL (4.0-10.5) 11/04/19 04:59 RBC 3.58 10^6/uL (4.35-5.55) L 11/04/19 04:59 Hgb 12.6 g/dL (13.5-17.0) L 11/04/19 04:59 Hct 35.9 % (37.9-51.0) L 11/04/19 04:59 MCV 100 fl (80-97) H 11/04/19 04:59 MCH 35.1 pg (27.0-33.4) H 11/04/19 04:59 MCHC 35.0 g/dL (32.0-36.0) 11/04/19 04:59 RDW 15.0 % (11.5-14.0) H 11/04/19 04:59 Plt Count 199 10^3/uL (150-450) 11/04/19 04:59 Lymph % (Auto) Not Reportable 10/30/19 01:45 [place] % (Auto) Not Reportable 10/30/19 01:45 Eos % (Auto) Not Reportable 10/30/19 01:45 Baso % (Auto) Not Reportable 10/30/19 01:45 Absolute Neuts (auto) Not Reportable 10/30/19 01:45 Absolute Lymphs (auto) Not Reportable 10/30/19 01:45 Absolute Monos (auto) Not Reportable 10/30/19 01:45 Absolute Eos (auto) Not Reportable 10/30/19 01:45 Absolute Basos (auto) Not Reportable 10/30/19 01:45 Total Counted 100 10/30/19 01:45 Seg Neutrophils % Not Reportable 10/30/19 01:45 Seg Neuts % (Manual) 53 % (42-78) 10/30/19 01:45 Band Neutrophils % 1 % (3-5) L 10/30/19 01:45 Lymphocytes % (Manual) 36 % (13-45) 10/30/19 01:45 Monocytes % (Manual) 10 % (3-13) 10/30/19 01:45 Eosinophils % (Manual) 0 % (0-6) 10/30/19 01:45 Basophils % (Manual) 0 % (0-2) 10/30/19 01:45 Abs Neuts (Manual) 2.6 10^3/uL (1.7-8.2) 10/30/19 01:45 Abs Lymphs (Manual) 1.7 10^3/uL (0.5-4.7) 10/30/19 01:45 Abs Monocytes (Manual) 0.5 10^3/uL (0.1-1.4) 10/30/19 01:45 Absolute Eos (Manual) 0.0 10^3/uL (0.0-0.6) 10/30/19 01:45 Abs Basophils (Manual) 0.0 10^3/uL (0.0-0.2) 10/30/19 01:45 Toxic Granulation 1+ 10/30/19 01:45 Platelet Comment ADEQUATE 10/30/19 01:45 Poikilocytosis SLIGHT 10/30/19 01:45 Anisocytosis SLIGHT 10/30/19 01:45 Ovalocytes SLIGHT 10/30/19 01:45 PT 12.2 SEC (11.4-15.4) 11/03/19 05:43 INR 0.91 11/03/19 05:43 APTT 28.7 SEC (23.5-35.8) 10/30/19 12:20 Sodium 138.8 mmol/L (137-145) 11/06/19 04:44 Potassium 4.6 mmol/L (3.6-5.0) 11/06/19 04:44 Chloride 105 mmol/L (98-107) 11/06/19 04:44 Carbon Dioxide 23 mmol/L (22-30) 11/06/19 04:44 Anion Gap 11 (5-19) 11/06/19 04:44 BUN 9 mg/dL (7-20) 11/06/19 04:44 Creatinine 0.66 mg/dL (0.52-1.25) 11/06/19 04:44 Est GFR ( Amer) > 60 (>60) 11/06/19 04:44 Est GFR (MDRD) Non-Af > 60 (>60) 11/06/19 04:44 Glucose 96 mg/dL (75-110) 11/06/19 04:44 Hemoglobin A1c % 5.5 % (4.7-6.0) 10/31/19 04:32 Calcium 8.8 mg/dL (8.4-10.2) 11/06/19 04:44 Phosphorus 3.0 mg/dL (2.5-4.5) 10/31/19 04:32 Magnesium 1.6 mg/dL (1.6-2.3) 10/31/19 04:32 Total Bilirubin 4.6 mg/dL (0.2-1.3) H 11/06/19 04:44 Direct Bilirubin 3.8 mg/dL (0.0-0.4) H 11/06/19 04:44 Neonat Total Bilirubin Not Reportable 11/06/19 04:44 Neonat Direct Bilirubin Not Reportable 11/06/19 04:44 Neonat Indirect Bili Not Reportable 11/06/19 04:44 AST 352 U/L (17-59) H 11/06/19 04:44 ALT 238 U/L (<50) H 11/06/19 04:44 Alkaline Phosphatase 673 U/L (38-126) H 11/06/19 04:44 Ammonia < 8.7 umol/L (9-33) L 10/30/19 12:20 Creatine Kinase 146 U/L (55-170) 10/30/19 01:45 Total Protein 5.8 g/dL (6.3-8.2) L 11/06/19 04:44 Albumin 3.0 g/dL (3.5-5.0) L 11/06/19 04:44 Triglycerides 3204 mg/dL (<150) H 10/31/19 04:32 Cholesterol 205.23 mg/dL (0-200) H 10/31/19 04:32 LDL Cholesterol Direct 63 mg/dL (<100) 10/31/19 04:32 VLDL Cholesterol, Calc UNABLE TO CALCULATE 10/31/19 04:32 HDL Cholesterol 28 mg/dL (>40) L 10/31/19 04:32 Lipase 116.6 U/L (23-300) 11/02/19 05:23 Urine Color VAUGHN 10/30/19 06:05 Urine Appearance SLIGHTLY-CLOUDY 10/30/19 06:05 Urine pH 5.0 (5.0-9.0) 10/30/19 06:05 Ur Specific [place] 1.025 10/30/19 06:05 Urine Protein NEGATIVE mg/dL (NEGATIVE) 10/30/19 06:05 Urine Glucose (UA) NEGATIVE mg/dL (NEGATIVE) 10/30/19 06:05 Urine Ketones NEGATIVE mg/dL (NEGATIVE) 10/30/19 06:05 Urine Blood NEGATIVE (NEGATIVE) 10/30/19 06:05 Urine Nitrite NEGATIVE (NEGATIVE) 10/30/19 06:05 Urine Bilirubin MODERATE (NEGATIVE) H 10/30/19 06:05 Urine Urobilinogen 2.0 mg/dL (<2.0) H 10/30/19 06:05 Ur Leukocyte Esterase NEGATIVE (NEGATIVE) 10/30/19 06:05 Urine WBC (Auto) 3 /HPF 10/30/19 06:05 Urine RBC (Auto) 0 /HPF 10/30/19 06:05 Squamous Epi Cells Auto <1 /HPF 10/30/19 06:05 Urine Mucus (Auto) RARE /LPF 10/30/19 06:05 Urine Ascorbic Acid NEGATIVE (NEGATIVE) 10/30/19 06:05 Salicylates < 1.0 mg/dL (2.0-20.0) L 10/30/19 01:45 Urine Opiates Screen NEGATIVE 10/30/19 06:05 Urine Methadone Screen NEGATIVE 10/30/19 06:05 Acetaminophen < 10 ug/mL (10-30) L 10/30/19 01:45 Ur Barbiturates Screen NEGATIVE 10/30/19 06:05 Ur Phencyclidine Scrn NEGATIVE 10/30/19 06:05 Ur Amphetamines Screen NEGATIVE 10/30/19 06:05 U Benzodiazepines Scrn NEGATIVE 10/30/19 06:05 Urine Cocaine Screen NEGATIVE 10/30/19 06:05 U Marijuana (THC) Screen NEGATIVE 10/30/19 06:05 Serum Alcohol 314 mg/dL (NONE DETECTED) H* 10/30/19 01:45 RPR NONREACTIVE (NONREACTIVE) 10/31/19 04:32 Hepatitis A IgM Ab Negative (Negative) 10/31/19 04:32 Hep Bs Antigen Negative (Negative) 10/31/19 04:32 Hep B Core IgM Ab Negative (Negative) 10/31/19 04:32 Hepatitis C Antibody <0.1 s/co ratio (0.0-0.9) 10/31/19 04:32 HIV 1&2 Antibody NEGATIVE (NEGATIVE) 10/30/19 12:20 Impressions: Abdomen Ultrasound 10/30/19 06:54 IMPRESSION: No significant ascites. Incidentally noted hepatomegaly and hepatic steatosis. Abdomen Ultrasound 10/30/19 09:51 IMPRESSION: 1. Extensive sludge throughout the gallbladder with gallbladder wall thickening and pericholecystic fluid highly suspicious for acute cholecystitis. Recommend surgical consultation. More focal area of wall thickening measuring up to 1.8 x 1.1 x 1.9 cm possibly focal wall thickening although polyp/mass is another consideration. 2. Dilation of the CBD measuring up to 7 mm without obstructing lesion or intrahepatic ductal dilation identified. Recommend correlation for evidence of biliary obstruction. MRCP or ERCP could be considered for further characterization. 3. Hepatomegaly and hepatic steatosis. Abdomen MRI 10/31/19 00:00 IMPRESSION: 1. No choledocholithiasis. 2. Distended gallbladder with surrounding inflammatory changes suggestive of acute cholecystitis. Stroke Is this a Stroke Patient?: No Acute Heart Failure - Is this a Heart Failure Patient?: No
[2019-11-06] MEDS: THIAMINE HCL 100 MG TABLET PO SCH (09:40)
[2019-11-06] MEDS: FOLIC ACID 1 MG TABLET PO SCH (09:41)
[2019-11-06] MEDS: FENOFIBRATE NANOCRYSTALLIZED 145 MG TABLET PO SCH (09:41)
[2019-11-06 14:08] VITALS: BP 130/80
== END 2019-11-06 14:15 | disposition home or self-care (01) | DRG 897 ==
LOC: ER 01:15 → EH 13:02 → 4N 14:19
PROVIDERS: ADMIT Internal Medicine; ATTEND Internal Medicine
DX: F10.231 Alcohol dependence with withdrawal delirium (principal); K81.0 Acute cholecystitis; F10.221 Alcohol dependence with intoxication delirium; K70.10 Alcoholic hepatitis without ascites; E78.5 Hyperlipidemia, unspecified; Y90.8 Blood alcohol level of 240 mg/100 ml or more; K21.9 Gastro-esophageal reflux disease without esophagitis; F17.210 Nicotine dependence, cigarettes, uncomplicated; E78.1 Pure hyperglyceridemia; F41.0 Panic disorder [episodic paroxysmal anxiety]; Z79.899 Other long term (current) drug therapy
CPT/HCPCS: 36415; 74181; 76705; 80048; 80053; 80061; 80074; 80076; 80307; 81001; 82140; 82550; 83036; 83690; 83735; 84100; 85025; 85027; 85610; 85730; 86592; 86701; 93005; 93010; 96361; 96365; 96375; 99285; C9113; J2060; J2405; J2543; J3411; J3475; J3480; J3490; J7030; J7050; S0028

== ENCOUNTER 2020-02-19 20:38 | Inpatient (IN) | payer SELFPAY ==
[2020-02-19] MEDS ORDERED: FAMOTIDINE 20 MG TABLET PO ONE (21:03)
[2020-02-19] MEDS ORDERED: LORAZEPAM 1 MG TABLET PO ONE (21:03)
--- NOTE | 2020-02-19 21:05 | ER Document Report ---
ED General - General Chief Complaint: Jaw Pain Stated Complaint: CHEST PAIN Time Seen by Provider: 02/19/20 20:53 Notes: Patient is a 44-year-old male that comes emergency department by EMS from [facility] where he is currently undergoing detox from alcohol for chief complaint of left jaw pain that radiates to the left ear and also intermittent pulling sensations in his chest that originate in his left upper abdomen (he points). He reports intermittent mild nausea but denies vomiting. He denies current pain in his chest, just states he has a strange "almost numbness sensation in my left jaw near my tooth". He denies injury. He reports known dental fracture in the left lower molar posteriorly. Patient denies recreational drugs, smoking, and he states his last alcohol drink was several weeks ago along with currently being in detox. He denies any cardiac history personally or with family. He has completed 3 days at the Detox center. TRAVEL OUTSIDE OF THE [place] IN LAST 30 DAYS: No - Related Data Allergies/Adverse Reactions: No Known Allergies Allergy (Unverified 10/29/19 22:08) Past Medical History - General Information source: Patient - Social History Smoking Status: Current Every Day Smoker Frequency of alcohol use: Heavy Lives with: Alone Family History: Reviewed & Not Pertinent Patient has homicidal ideation: No - Past Medical History Cardiac Medical History: Reports: Hx Hypertension GI Medical History: Reports: Hx Gastroesophageal Reflux Disease Psychiatric Medical History: Reports: Hx Depression Review of Systems - Review of Systems Constitutional: No symptoms reported EENT: See HPI Cardiovascular: See HPI Respiratory: No symptoms reported Gastrointestinal: See HPI Genitourinary: No symptoms reported Male Genitourinary: No symptoms reported Musculoskeletal: No symptoms reported Skin: No symptoms reported Hematologic/Lymphatic: No symptoms reported Neurological/Psychological: No symptoms reported Physical Exam - Vital signs Vitals: Temp Resp Pulse Ox 99.4 F 18 96 02/19/20 20:52 02/19/20 20:52 02/19/20 20:52 - Notes Notes: GENERAL: Alert, interacts well. No acute distress. HEAD: Normocephalic, atraumatic. EYES: Pupils equal, round, and reactive to light. Extraocular movements intact. ENT: Oral mucosa moist, tongue midline. Oropharynx unremarkable. Airway patent. Left inferior teeth showing posterior molar with fracture, surrounding erythema and tenderness, no induration or fluctuance, no noted abscess, unremarkable oropharyngeal exam otherwise. NECK: Full range of motion. Supple. Trachea midline. No lymphadenopathy. LUNGS: Clear to auscultation bilaterally, no wheezes, rales, or rhonchi. No respiratory distress. Non-tender chest wall. HEART: Mildly tachycardic, normal rhythm, no murmur ABDOMEN: Mild tenderness in the mid to upper left abdomen. No overt distention. No guarding or rigidity. GENITOURINARY: Deferred EXTREMITIES: Moves all 4 extremities spontaneously. No edema, normal radial and dorsalis pedis pulses bilaterally. No cyanosis. BACK: no cervical, thoracic, lumbar midline tenderness. No saddle anesthesia, normal distal neurovascular exam. Moves all extremities in full range of motion. NEUROLOGICAL: Alert and oriented x3. Normal speech. Cranial nerves II through XII grossly intact. Strength 5/5 in all extremities. PSYCH: Normal affect, normal mood. SKIN: Warm, dry, normal turgor. No rashes or lesions noted. Course - Re-evaluation Re-evalutation: On my evaluation patient is borderline tachycardic, has some minimal tenderness in the mid to left upper abdomen, however he is nontoxic in appearance, he is not febrile or hypotensive, he has clear lungs. Patient does have what appears to be a developing dental infection but there is no facial swelling or noted secondary abscess. CBC does not show leukocytosis, this does show macrocytic anemia consistent with patient with alcoholism. Chemistry shows hypokalemia at 2.6, hypomagnesemia at 1.4, hypocalcemia at 6.7. Patient will be started on replacement. No T wave abnormalities or QT prolongation noted. Bilirubin and LFTs are unremarkable. Discussed with Dr. braxton. Plan will be to replace these and recheck, if these are normalized and patient is doing well he will be discharged back to detox. He was given Ativan and Pepcid here. Repeat chemistry is not improved despite 40 mEq of potassium IV, 40 mEq of potassium p.o., 2 mg of magnesium IV, 1 g of calcium gluconate. This was double checked and this was not a lab error. In addition this patient is now developed low-grade fever at 1.4 and he has become slightly more tachycardic. On reevaluation his abdomen is actually significantly more tender. I did discuss with Dr. Onofre. Recommendation is lactic acid, venous blood gas, urinalysis, alcohol level. Also will perform CT of the abdomen/pelvis with IV contrast. CT does not show ascites or acute finding other than possible enteritis and ileus. Lactic acid mildly elevated 2.8, venous blood gas and urinalysis are unremarkable, urine drug screen pending. Alcohol negative. Updated Dr. Onofre, recommendation is admit for electrolyte derangements which are persistent. Patient was also given Unasyn because of his dental infection and enteritis with fever. Checking COVID-19. Discussed with Dr. Manrique, hospitalist, patient accepted to [facility] full admission. - Vital Signs Vital signs: Temp Pulse Resp BP Pulse Ox 99.5 F 21 H 158/114 H 95 02/20/20 05:47 02/20/20 03:00 02/20/20 04:15 02/20/20 04:15 - Laboratory Result Diagrams: 02/19/20 20:47 02/20/20 03:28 Laboratory results interpreted by me: 02/19/20 02/19/20 02/19/20 20:47 20:47 20:47 RBC 2.85 L Hgb 10.4 L Hct 28.7 L MCV 101 H MCH 36.4 H MCHC 36.1 H RDW 15.4 H Plt Count 92 L Monocytes % (Manual) 2 L Promyelocytes % 1 H VBG pH Sodium 135.7 L Potassium 2.6 L* Carbon Dioxide BUN 5 L Glucose 124 H Lactic Acid Calcium 6.5 L* Magnesium 1.4 L AST 94 H Creatine Kinase Total Protein 5.9 L Albumin 3.2 L 02/20/20 02/20/20 02/20/20 02:27 03:28 03:28 RBC Hgb Hct MCV MCH MCHC RDW Plt Count Monocytes % (Manual) Promyelocytes % VBG pH Sodium 136.7 L Potassium 2.7 L* 2.6 L* Carbon Dioxide 31 H BUN 4 L 4 L Glucose 111 H Lactic Acid Calcium 6.7 L* 6.6 L* Magnesium AST Creatine Kinase 204 H Total Protein Albumin 02/20/20 02/20/20 04:28 04:28 RBC Hgb Hct MCV MCH MCHC RDW Plt Count Monocytes % (Manual) Promyelocytes % VBG pH 7.47 H Sodium Potassium Carbon Dioxide BUN Glucose Lactic Acid 2.8 H Calcium Magnesium AST Creatine Kinase Total Protein Albumin Discharge - Discharge Clinical Impression: Hypomagnesemia, Hypokalemia, Hypocalcemia, Pain, dental Alcohol dependence Qualifiers: Substance use status: unspecified alcohol-induced disorder Qualified Code(s): F10.29 - Alcohol dependence with unspecified alcohol-induced disorder Fever Qualifiers: Fever type: unspecified Qualified Code(s): R50.9 - Fever, unspecified Chest pain Qualifiers: Chest pain type: unspecified Qualified Code(s): R07.9 - Chest pain, unspecified Abdominal pain Qualifiers: Abdominal location: generalized Qualified Code(s): R10.84 - Generalized abdominal pain Condition: Stable Disposition: ADMITTED INPATIENT Admitting Provider: Burton (Hospitalist) Unit Admitted: [facility]
[2020-02-19 21:17] LABS: HEMATOCRIT 28.7 % (37.9-51.0); HEMOGLOBIN 10.4 g/dL (13.5-17.0); MEAN CORPUSCULAR HEMOGLOBIN 36.4 pg (27.0-33.4); MEAN CORPUSCULAR HGB CONC 36.1 g/dL (32.0-36.0); MEAN CORPUSCULAR VOLUME 101 fl (80-97); RED BLOOD COUNT 2.85 10^6/uL (4.35-5.55); RED CELL DISTRIBUTION WIDTH 15.4 % (11.5-14.0)
[2020-02-19 21:23] LABS: ALBUMIN 3.2 g/dL (3.5-5.0); ALKALINE PHOSPHATASE 118 U/L (38-126); ANION GAP 7 (5-19); ASPARTATE AMINO TRANSFERASE 94 U/L (17-59); BILIRUBIN,DIRECT 0.1 mg/dL (0.0-0.4); BILIRUBIN,TOTAL 0.6 mg/dL (0.2-1.3); BLOOD UREA NITROGEN 5 mg/dL (7-20); CARBON DIOXIDE 30 mmol/L (22-30); CHLORIDE 99 mmol/L (98-107); GLUCOSE 124 mg/dL (75-110); TOTAL PROTEIN 5.9 g/dL (6.3-8.2)
[2020-02-19 21:30] LABS: CALCIUM 6.5 mg/dL (8.4-10.2); POTASSIUM 2.6 mmol/L (3.6-5.0)
--- NOTE | 2020-02-19 21:33 | RADIOLOGY REPORT (SQ) ---
CLINICAL INDICATION: chest pain. TECHNIQUE: A single portable AP view was obtained of the chest at 2123 hours. COMPARISON: None. FINDINGS: The cardiomediastinal silhouette is normal. The lungs are grossly clear. No evidence of effusion or pneumothorax. The visualized bones are unremarkable. IMPRESSION: No evidence of active intrathoracic disease.
[2020-02-19 21:39] LABS: PLATELET COUNT 92 10^3/uL (150-450)
[2020-02-19 21:53] LABS: ABSOLUTE LYMPHOCYTES# (MANUAL) 2.3 10^3/uL (0.5-4.7); ABSOLUTE MONOCYTES # (MANUAL) 0.1 10^3/uL (0.1-1.4); BASOPHILS % (MANUAL) 0 % (0-2); EOSINOPHILS % (MANUAL) 2 % (0-6); LYMPHOCYTES % (MANUAL) 36 % (13-45); MONOCYTES % (MANUAL) 2 % (3-13); SEGMENTED NEUTROPHILS % (MAN) 59 % (42-78); TOTAL CELLS COUNTED 100
[2020-02-19 21:54] LABS: ANISOCYTOSIS SLIGHT; TOXIC GRANULATION SLIGHT
[2020-02-19] MEDS: POTASSI CL 20 MEQ/50 ML RIDER 20 MEQ/50 ML RTUPB IV SCH ×2 (22:03→23:59)
[2020-02-19 22:13] LABS: PLATELET COMMENT DECREASED
[2020-02-19 22:16] LABS: WHITE BLOOD COUNT 5.5 10^3/uL (4.0-10.5)
[2020-02-19 22:17] LABS: PROMYELOCYTES % (MANUAL) 1 % (0)
[2020-02-19 22:20] LABS: POLYCHROMASIA 1+
[2020-02-19 22:22] LABS: NUCLEATED RED BLOOD CELLS 16 /100 WBC (0)
[2020-02-19] MEDS: MAGNESIUM SULFATE/D5W 1 GM/100 ML RTUPB IV SCH (22:45)
[2020-02-19] MEDS ORDERED: POTASSIUM CHLORIDE 10 MEQ TABLET.ER PO ONE (23:03)
[2020-02-19] MEDS ORDERED: CALCIUM GLUCONATE 1000 MG/10 ML INJ IV ONE (23:03)
[2020-02-20 02:59] LABS: ANION GAP 6 (5-19); BLOOD UREA NITROGEN 4 mg/dL (7-20); CARBON DIOXIDE 30 mmol/L (22-30); CHLORIDE 101 mmol/L (98-107); GLUCOSE 108 mg/dL (75-110)
[2020-02-20 03:13] LABS: CALCIUM 6.7 mg/dL (8.4-10.2)
[2020-02-20 03:14] LABS: POTASSIUM 2.7 mmol/L (3.6-5.0)
[2020-02-20 03:58] LABS: ANION GAP 5 (5-19); BLOOD UREA NITROGEN 4 mg/dL (7-20); CARBON DIOXIDE 31 mmol/L (22-30); CHLORIDE 101 mmol/L (98-107); GLUCOSE 111 mg/dL (75-110)
[2020-02-20 04:04] LABS: POTASSIUM 2.6 mmol/L (3.6-5.0)
[2020-02-20 04:06] LABS: CALCIUM 6.6 mg/dL (8.4-10.2)
[2020-02-20] MEDS ORDERED: LORAZEPAM INJ 2 MG/1 ML VIAL IV ONE (04:18)
[2020-02-20] MEDS ORDERED: ACETAMINOPHEN 325 MG TABLET PO ONE (04:21)
[2020-02-20 04:42] LABS: VENOUS BLOOD BASE EXCESS 1.6 mmol/L; VENOUS BLOOD PH 7.47 (7.30-7.42)
[2020-02-20 05:27] LABS: APPEARANCE,URINE CLEAR; BILIRUBIN,URINE NEGATIVE (NEGATIVE); COLOR,URINE YELLOW; GLUCOSE, URINE NEGATIVE (NEGATIVE); KETONES,URINE NEGATIVE (NEGATIVE); LEUKOCYTE ESTERASE,URINE NEGATIVE (NEGATIVE); NITRITE,URINE NEGATIVE (NEGATIVE); PROTEIN,URINE NEGATIVE (NEGATIVE); URINE SPECIFIC GRAVITY 1.005; UROBILINOGEN,URINE NEGATIVE mg/dL (<2.0)
--- NOTE | 2020-02-20 05:41 | RADIOLOGY REPORT (SQ) ---
EXAM DESCRIPTION: CT ABDOMEN PELVIS WITH IV CONTRAST COMPLETED DATE/TME: 02/20/2020 04:21 CLINICAL HISTORY: 44 years Male, abd pain (left side mainly), fever. CREAT 0.57 Comparison:Oct 31 2019 Technique: IV contrast. Coronal and sagittal reformat. This exam was performed according to our departmental dose-optimization program, which includes automated exposure control, adjustment of the mA and/or kV according to patient size and/or use of iterative reconstruction technique. [facility]: Dose Right [facility]: CareDose [facility]: Dose Right [facility]: Teradose 4D [facility]: [place] LIMITATIONS: None Findings: Mild diffuse small bowel ileus. Colonic fluid which may indicate ileus, malabsorption, or enteritis/toxin. Hepatic steatosis. Mild disc desiccation. No ascites. No pneumoperitoneum. Normal appendix. No gross evidence of gallbladder inflammation, hepatobiliary obstruction, or portal vein defect. No hydronephrosis or hydroureter. No renal/ureteral stone. No evidence of abdominal aortic aneurysm. Inferior thorax, gallbladder, pancreas, spleen, adrenals, renal system, gastrointestinal tract, pelvic organs, lymphatics, vasculature, and musculoskeleton appear otherwise unremarkable. IMPRESSION: 1. Mild diffuse small bowel ileus. 2. Colonic fluid which may indicate ileus, malabsorption, or enteritis/toxin. 3. Hepatic steatosis.
[2020-02-20 05:42] LABS: URINE AMPHETAMINES SCREEN NEGATIVE; URINE BARBITURATES SCREEN NEGATIVE; URINE BENZODIAZEPINES SCREEN NEGATIVE; URINE COCAINE SCREEN NEGATIVE; URINE MARIJUANA (THC) SCREEN NEGATIVE; URINE METHADONE SCREEN NEGATIVE; URINE PHENCYCLIDINE SCREEN NEGATIVE
[2020-02-20] MEDS ORDERED: AMPICILLIN SOD/SULBACTAM 3 GM VIAL IV ONE (05:48)
[2020-02-20] MEDS ORDERED: LORAZEPAM INJ 2 MG/1 ML VIAL IV PRN (06:02)
[2020-02-20] MEDS ORDERED: MAG HYDROX/AL HYDROX/SIMETH SUSP 30 ML UDCUP PO PRN (06:05)
[2020-02-20] MEDS ORDERED: MAGNESIUM HYDROXIDE SUSP 30 ML UDCUP PO PRN (06:05)
[2020-02-20] MEDS ORDERED: IPRATROPIUM/ALBUTEROL 0.5-2.5 MG/3 ML AMPUL NEB PRN (06:05)
[2020-02-20] MEDS ORDERED: NORMAL SALINE 1000 ML 1,000 ML IV SCH (06:15)
[2020-02-20] MEDS ORDERED: CEFTRIAXONE 1 GM/D5W RTU 1 GM/50 ML RTUPB IV SCH (06:30)
--- NOTE | 2020-02-20 06:52 | PDOC H&P ---
History of Present Illness Admission Date/PCP: 02/20/20 06:08 Patient complains of: Abdominal pain and fever History of Present Illness: GENE ANDINO is a 44 year old male with a past medical history of alcoholic hepatitis, cholecystitis, alcohol and substance dependence and alcohol withdrawal. Patient was admitted to [facility] for alcohol dependence with anticipated alcohol withdrawal. He developed abdominal pain and fever prompting evaluation emergency department he is found to have fever, enteritis by CT, hypocalcemia and hypokalemia. He receives electrolyte repletion, empiric antibiotics, IV fluid challenge and referred to the hospitalist for admission. Patient was diagnosed with cholecystitis 4 months ago recommended to have outpatient surgical follow-up for cholecystectomy but was lost to follow-up. Past Medical History Cardiac Medical History: Reports: Hypertension GI Medical History: Reports: Gastroesophageal Reflux Disease Psychiatric Medical History: Reports: Alcohol Dependency, Depression, Substance Abuse, Tobacco Dependency Social History Information Source: Patient Smoking Status: Never Smoker Frequency of Alcohol Use: Heavy Hx Recreational Drug Use: Yes Hx Prescription Drug Abuse: Yes - suboxone - Advance Directive Resuscitation Status: Full Code Family History Family History: Hypertension Parental Family History Reviewed: Yes Children Family History Reviewed: Yes Sibling(s) Family History Reviewed.: Yes Medication/Allergy Home Medications: Fenofibrate Nanocrystallized [Tricor 145 mg Tablet] 145 mg PO DAILY 30 Days #30 tablet 11/06/19 Allergies/Adverse Reactions: No Known Allergies Allergy (Unverified 10/29/19 22:08) Review of Systems Constitutional: ABSENT: chills, fever(s), headache(s), weight gain, weight loss Eyes: ABSENT: visual disturbances Ears: ABSENT: hearing changes Cardiovascular: ABSENT: chest pain, dyspnea on exertion, edema, orthropnea, palpitations Respiratory: ABSENT: cough, hemoptysis Gastrointestinal: PRESENT: as per HPI, abdominal pain, nausea. ABSENT: constipation, diarrhea, hematemesis, hematochezia, vomiting Genitourinary: ABSENT: dysuria, hematuria Musculoskeletal: ABSENT: joint swelling Integumentary: ABSENT: rash, wounds Neurological: ABSENT: abnormal gait, abnormal speech, confusion, dizziness, focal weakness, syncope Psychiatric: ABSENT: anxiety, depression, homidical ideation, suicidal ideation Endocrine: ABSENT: cold intolerance, heat intolerance, polydipsia, polyuria Hematologic/Lymphatic: ABSENT: easy bleeding, easy bruising Physical Exam Vital Signs: Temp Pulse Resp BP Pulse Ox 99.5 F 21 H 158/114 H 95 02/20/20 05:47 02/20/20 03:00 02/20/20 04:15 02/20/20 04:15 Intake & Output 02/18/20 02/19/20 02/20/20 11:59 11:59 11:59 Intake Total 298 Balance 298 Weight 90.718 kg General appearance: PRESENT: cooperative, disheveled, mild distress, obese, well-developed. ABSENT: well-nourished Head exam: PRESENT: atraumatic, normocephalic Eye exam: PRESENT: conjunctiva pink, EOMI, PERRLA. ABSENT: scleral icterus Ear exam: PRESENT: normal external ear exam Mouth exam: PRESENT: moist, tongue midline Neck exam: ABSENT: carotid bruit, JVD, lymphadenopathy, thyromegaly Respiratory exam: PRESENT: clear to auscultation erick. ABSENT: rales, rhonchi, wheezes Cardiovascular exam: PRESENT: RRR, tachycardia. ABSENT: diastolic murmur, rubs, systolic murmur Pulses: PRESENT: normal dorsalis pedis pul Vascular exam: PRESENT: normal capillary refill GI/Abdominal exam: PRESENT: distended, hyperactive bowel sounds, soft, tenderness - Diffuse no guarding. ABSENT: guarding, mass, organolmegaly, rebound Rectal exam: PRESENT: deferred Extremities exam: PRESENT: full ROM. ABSENT: calf tenderness, clubbing, pedal edema Neurological exam: PRESENT: alert, awake, oriented to person, oriented to place, oriented to time, oriented to situation, CN II-XII grossly intact. ABSENT: motor sensory deficit Psychiatric exam: PRESENT: appropriate affect, normal mood. ABSENT: homicidal ideation, suicidal ideation Skin exam: PRESENT: dry, intact, warm. ABSENT: cyanosis, rash Results Laboratory Results: 02/19/20 20:47 02/20/20 03:28 02/19/20 02/19/20 02/19/20 20:47 20:47 20:47 WBC 5.5 RBC 2.85 L Hgb 10.4 L Hct 28.7 L MCV 101 H MCH 36.4 H MCHC 36.1 H RDW 15.4 H Plt Count 92 L Seg Neutrophils % Not Reportable VBG pH VBG pCO2 VBG HCO3 VBG Base Excess Sodium 135.7 L Potassium 2.6 L* Chloride 99 Carbon Dioxide 30 Anion Gap 7 BUN 5 L Creatinine 0.77 Est GFR ( Amer) > 60 Glucose 124 H Lactic Acid Calcium 6.5 L* Phosphorus Magnesium 1.4 L Total Bilirubin 0.6 AST 94 H Alkaline Phosphatase 118 Total Protein 5.9 L Albumin 3.2 L Lipase 216.7 Urine Color Urine Appearance Urine pH Ur Specific [place] Urine Protein Urine Glucose (UA) Urine Ketones Urine Blood Urine Nitrite Ur Leukocyte Esterase Urine WBC (Auto) Urine RBC (Auto) 02/20/20 02/20/20 02/20/20 02:27 03:28 03:28 WBC RBC Hgb Hct MCV MCH MCHC RDW Plt Count Seg Neutrophils % VBG pH VBG pCO2 VBG HCO3 VBG Base Excess Sodium 136.7 L 137.0 Potassium 2.7 L* 2.6 L* Chloride 101 101 Carbon Dioxide 30 31 H Anion Gap 6 5 BUN 4 L 4 L Creatinine 0.57 0.57 Est GFR ( Amer) > 60 > 60 Glucose 108 111 H Lactic Acid Calcium 6.7 L* 6.6 L* Phosphorus 4.1 Magnesium Total Bilirubin AST Alkaline Phosphatase Total Protein Albumin Lipase Urine Color Urine Appearance Urine pH Ur Specific [place] Urine Protein Urine Glucose (UA) Urine Ketones Urine Blood Urine Nitrite Ur Leukocyte Esterase Urine WBC (Auto) Urine RBC (Auto) 02/20/20 02/20/20 02/20/20 04:28 04:28 05:13 WBC RBC Hgb Hct MCV MCH MCHC RDW Plt Count Seg Neutrophils % VBG pH 7.47 H VBG pCO2 35.0 VBG HCO3 25.0 VBG Base Excess 1.6 Sodium Potassium Chloride Carbon Dioxide Anion Gap BUN Creatinine Est GFR ( Amer) Glucose Lactic Acid 2.8 H Calcium Phosphorus Magnesium Total Bilirubin AST Alkaline Phosphatase Total Protein Albumin Lipase Urine Color YELLOW Urine Appearance CLEAR Urine pH 7.0 Ur Specific [place] 1.005 Urine Protein NEGATIVE Urine Glucose (UA) NEGATIVE Urine Ketones NEGATIVE Urine Blood NEGATIVE Urine Nitrite NEGATIVE Ur Leukocyte Esterase NEGATIVE Urine WBC (Auto) 1 Urine RBC (Auto) 0 02/19/20 02/20/20 02/20/20 20:47 00:47 03:28 Creatine Kinase 204 H Troponin I < 0.012 < 0.012 Impressions: Chest X-Ray 02/19/20 21:02 IMPRESSION: No evidence of active intrathoracic disease. Abdomen/Pelvis CT 02/20/20 04:21 IMPRESSION: 1. Mild diffuse small bowel ileus. 2. Colonic fluid which may indicate ileus, malabsorption, or enteritis/toxin. 3. Hepatic steatosis. Assessment and Plan - Diagnosis (1) Alcohol withdrawal Is this a current diagnosis for this admission?: Yes Plan: Thiamine, folate, scheduled Valium with PRN Ativan (2) Acute and chronic cholecystitis Is this a current diagnosis for this admission?: Yes Plan: By MRI imaging, gated by severe alcoholism impending alcohol withdrawal. Empiric antibiotics initiated, IV fluid challenge, follow-up, ultrasound (3) Anemia Is this a current diagnosis for this admission?: Yes Plan: Macrocytic anemia, follow-up anemia work-up (4) Hypokalemia Is this a current diagnosis for this admission?: Yes Plan: IV repletion, follow-up magnesium and chemistry (5) Hypomagnesemia Is this a current diagnosis for this admission?: Yes Plan: IV repletion, follow-up magnesium level (6) Hypocalcemia Is this a current diagnosis for this admission?: Yes Plan: IV repletion, calcium level - Time Time Spent with patient: 25-34 minutes - Inpatient Certification Medical Necessity: Need Close Monitoring Due to Risk of Patient Decompensation
[2020-02-20] MEDS: MAGNESIUM SULFATE/D5W 1 GM/100 ML RTUPB IV SCH ×3 (06:57→14:17)
[2020-02-20] MEDS: POTASSI CL 20 MEQ/50 ML RIDER 20 MEQ/50 ML RTUPB IV SCH ×2 (06:57→14:18)
[2020-02-20] MEDS: METRONIDAZOLE 500 MG/NS RTU 500 MG/100 ML RTUPB IV SCH ×3 (07:04→17:41)
--- NOTE | 2020-02-20 09:16 | EKG REPORT ---
SEVERITY:- ABNORMAL ECG - SINUS TACHYCARDIA NONSPECIFIC T ABNORMALITIES, DIFFUSE LEADS : Confirmed by: Yaneth Albert 20-Feb-2020 09:15:45
--- NOTE | 2020-02-20 10:29 | RADIOLOGY REPORT (SQ) ---
EXAM DESCRIPTION: U/S ABDOMEN COMPLETE W/O DOP IMAGES COMPLETED DATE/TIME: 02/20/2020 9:45 am REASON FOR STUDY: abd pain COMPARISON: 10/30/2019 TECHNIQUE: Dynamic and static grayscale images acquired of the abdomen and recorded on PACS. Additio nal selected color Doppler and spectral images recorded. Note: Exam does not meet criteria for a complete duplex/doppler study LIMITATIONS: Body habitus. Study limited due to acoustical interference from fat or from air in the bowel. FINDINGS: PANCREAS: Obscured. LIVER: Echotexture is coarse with increased echogenicity consistent with fatty infiltration. LIVER VASCULATURE: Normal directional flow of the main portal vein and hepatic veins. GALLBLADDER: Sludge. No stones. Normal wall thickness. No pericholecystic fluid. ULTRASOUND-DETECTED OWENS'S SIGN: Negative. INTRAHEPATIC DUCTS AND COMMON DUCT: CBD and intrahepatic ducts normal caliber. No filling defects. INFERIOR VENA CAVA: Normal flow. AORTA: Obscured. RIGHT KIDNEY: Normal size. Normal echogenicity. No solid or suspicious masses. No hydronephros is. No calcifications. LEFT KIDNEY: Normal size. Normal echogenicity. No solid or suspicious masses. No hydronephrosi s. No calcifications. SPLEEN:Normal size. No solid masses. PERITONEAL AND PLEURAL SPACES: No ascites or effusions. OTHER: No other significant finding. IMPRESSION: Fatty liver. No ascites. TECHNICAL DOCUMENTATION: JOB ID: [id number] 2010 [employer] All Rights Reserved Reading location - IP/workstation name: [email or web address]
[2020-02-20] MEDS: DIAZEPAM INJ 10 MG/2 ML DISP.SYRIN IV SCH ×2 (10:48→18:08)
--- NOTE | 2020-02-20 11:31 | PDOC PROGRESS REPORT ---
Subjective Progress Note for:: 02/20/20 Subjective:: Called to see the patient. He is jittery. His stomach is feeling better. No vomiting and no tenesmus. Reason For Visit: ENTERITIS, DENTAL INFECTION ALCOHOL WITHDRAW Physical Exam Vital Signs: Temp Pulse Resp BP Pulse Ox 99.8 F 106 H 15 137/93 H 93 02/20/20 08:28 02/20/20 10:15 02/20/20 10:15 02/20/20 08:28 02/20/20 10:15 Intake & Output 02/19/20 02/20/20 02/21/20 06:59 06:59 06:59 Intake Total 298 300 Balance 298 300 Weight 90.718 kg 91.3 kg General appearance: PRESENT: cooperative, mild distress, well-developed Head exam: PRESENT: atraumatic, normocephalic Eye exam: PRESENT: conjunctiva pale. ABSENT: scleral icterus Mouth exam: PRESENT: moist, tongue midline Respiratory exam: PRESENT: clear to auscultation erick, symmetrical, unlabored. ABSENT: accessory muscle use, rales, rhonchi, tachypnea, wheezes Cardiovascular exam: PRESENT: +S1, +S2, tachycardia. ABSENT: bradycardia, irregular rhythm, systolic murmur GI/Abdominal exam: PRESENT: distended, soft, tenderness - Mild tenderness left lower quadrant, other - Tympanitic. ABSENT: guarding, mass Rectal exam: PRESENT: deferred Gentrourinary exam: ABSENT: indwelling catheter Extremities exam: ABSENT: pedal edema Musculoskeletal exam: PRESENT: ambulatory, normal inspection. ABSENT: deformity Neurological exam: PRESENT: alert, awake, oriented to person, oriented to place, oriented to time, oriented to situation, CN II-XII grossly intact. ABSENT: altered, motor sensory deficit Psychiatric exam: PRESENT: flat affect. ABSENT: agitated, anxious Focused psych exam: ABSENT: delusional, paranoid, restlessness Skin exam: PRESENT: dry, normal color, warm. ABSENT: rash Results Laboratory Results: 02/19/20 20:47 02/19/20 02/19/20 02/19/20 20:47 20:47 20:47 WBC 5.5 RBC 2.85 L Hgb 10.4 L Hct 28.7 L MCV 101 H MCH 36.4 H MCHC 36.1 H RDW 15.4 H Plt Count 92 L Seg Neutrophils % Not Reportable VBG pH VBG pCO2 VBG HCO3 VBG Base Excess Sodium 135.7 L Potassium 2.6 L* Chloride 99 Carbon Dioxide 30 Anion Gap 7 BUN 5 L Creatinine 0.77 Est GFR ( Amer) > 60 Glucose 124 H Lactic Acid Calcium 6.5 L* Phosphorus Magnesium 1.4 L Total Bilirubin 0.6 AST 94 H Alkaline Phosphatase 118 Total Protein 5.9 L Albumin 3.2 L Lipase 216.7 Urine Color Urine Appearance Urine pH Ur Specific Derwent Urine Protein Urine Glucose (UA) Urine Ketones Urine Blood Urine Nitrite Ur Leukocyte Esterase Urine WBC (Auto) Urine RBC (Auto) 02/20/20 02/20/20 02/20/20 02:27 03:28 03:28 WBC RBC Hgb Hct MCV MCH MCHC RDW Plt Count Seg Neutrophils % VBG pH VBG pCO2 VBG HCO3 VBG Base Excess Sodium 136.7 L 137.0 Potassium 2.7 L* 2.6 L* Chloride 101 101 Carbon Dioxide 30 31 H Anion Gap 6 5 BUN 4 L 4 L Creatinine 0.57 0.57 Est GFR ( Amer) > 60 > 60 Glucose 108 111 H Lactic Acid Calcium 6.7 L* 6.6 L* Phosphorus 4.1 Magnesium Total Bilirubin AST Alkaline Phosphatase Total Protein Albumin Lipase Urine Color Urine Appearance Urine pH Ur Specific Derwent Urine Protein Urine Glucose (UA) Urine Ketones Urine Blood Urine Nitrite Ur Leukocyte Esterase Urine WBC (Auto) Urine RBC (Auto) 02/20/20 02/20/20 02/20/20 04:28 04:28 05:13 WBC RBC Hgb Hct MCV MCH MCHC RDW Plt Count Seg Neutrophils % VBG pH 7.47 H VBG pCO2 35.0 VBG HCO3 25.0 VBG Base Excess 1.6 Sodium Potassium Chloride Carbon Dioxide Anion Gap BUN Creatinine Est GFR ( Amer) Glucose Lactic Acid 2.8 H Calcium Phosphorus Magnesium Total Bilirubin AST Alkaline Phosphatase Total Protein Albumin Lipase Urine Color YELLOW Urine Appearance CLEAR Urine pH 7.0 Ur Specific Derwent 1.005 Urine Protein NEGATIVE Urine Glucose (UA) NEGATIVE Urine Ketones NEGATIVE Urine Blood NEGATIVE Urine Nitrite NEGATIVE Ur Leukocyte Esterase NEGATIVE Urine WBC (Auto) 1 Urine RBC (Auto) 0 02/19/20 02/20/20 02/20/20 20:47 00:47 03:28 Creatine Kinase 204 H Troponin I < 0.012 < 0.012 Impressions: Chest X-Ray 02/19/20 21:02 IMPRESSION: No evidence of active intrathoracic disease. Abdomen Ultrasound 02/20/20 00:00 IMPRESSION: Fatty liver. No ascites. Abdomen/Pelvis CT 02/20/20 04:21 IMPRESSION: 1. Mild diffuse small bowel ileus. 2. Colonic fluid which may indicate ileus, malabsorption, or enteritis/toxin. 3. Hepatic steatosis. Assessment and Plan - Diagnosis (1) Alcohol withdrawal Qualifiers: Complication of substance-induced condition: uncomplicated Qualified Code(s): F10.230 - Alcohol dependence with withdrawal, uncomplicated Is this a current diagnosis for this admission?: Yes Plan: Thiamine, folate, scheduled Valium with PRN Ativan 02/20/2020 The patient was getting jittery. He had lorazepam available as needed. He is on scheduled Valium every 12 hours. Consider moving this to every 8 hours if needed. Continue thiamine and folate. (2) Ileus Is this a current diagnosis for this admission?: Yes Plan: 02/20/2020 The patient does have a chronic cholecystitis. There is no evidence of obstruction or dilatation of the biliary tree. This is not likely a gallstone ileus but it is certainly possible. Other etiologies include a bacterial infection. The patient denies any family history of inflammatory bowel disease. It does not appear to be an acute pancreatitis or alcohol induced hepatitis. I am changing him to clear liquids. I will try intermittent doses of Reglan. Continue to monitor closely. Consider repeat abdominal x-ray in 1 or 2 days. (3) Acute and chronic cholecystitis Is this a current diagnosis for this admission?: Yes Plan: By MRI imaging, gated by severe alcoholism impending alcohol withdrawal. Empiric antibiotics initiated, IV fluid challenge, follow-up, ultrasound 02/20/2020 Continue antibiotics and IV fluids. Abdominal ultrasound obtained. No evidence of obstructive biliary disease. (4) Anemia Qualifiers: Anemia type: unspecified type Qualified Code(s): D64.9 - Anemia, unspecifie d Is this a current diagnosis for this admission?: Yes Plan: Macrocytic anemia, follow-up anemia work-up 02/20/2020 Most likely related to his alcoholism and poor dietary intake. I will add a B complex vitamin as well. (5) Hypokalemia Is this a current diagnosis for this admission?: Yes Plan: IV repletion, follow-up magnesium and chemistry 02/20/2020 Patient receiving intravenous potassium. Serial labs ordered so as not to overcorrect. (6) Hypocalcemia Is this a current diagnosis for this admission?: Yes Plan: IV repletion, calcium level 02/20/2020 Currently receiving intravenous supplementation. Will monitor with serial labs. Will check ionized calcium as well. (7) Hypomagnesemia Is this a current diagnosis for this admission?: Yes Plan: IV repletion, follow-up magnesium level 02/20/2020 Intravenous repletion of magnesium initially. Serial chemistries. Change to oral magnesium once back in the normal range. (8) Alcoholic fatty liver Is this a current diagnosis for this admission?: Yes Plan: 02/20/2020 Likely longstanding. Will encourage alcohol cessation. - Time Time Spent with patient: 15-24 minutes Medications reviewed and adjusted accordingly: Yes Anticipated discharge: Home
[2020-02-20] MEDS ORDERED: METOCLOPRAMIDE HCL INJ/PF 10 MG/2 ML SDV IV PRN ×2 (11:33→15:30)
[2020-02-20 11:51] LABS: ANION GAP 7 (5-19); BLOOD UREA NITROGEN 3 mg/dL (7-20); CARBON DIOXIDE 27 mmol/L (22-30); CHLORIDE 103 mmol/L (98-107); GLUCOSE 120 mg/dL (75-110)
[2020-02-20 12:03] LABS: CALCIUM 6.7 mg/dL (8.4-10.2); POTASSIUM 2.7 mmol/L (3.6-5.0)
[2020-02-20 12:29] LABS: C-REACTIVE PROTEIN 62.6 mg/L (<10.0)
[2020-02-20 12:31] LABS: PATH REVIEW PATHOLOGIST REVIEWED
[2020-02-20] MEDS: HEPARIN SOD (PORCINE) 5,000 UNIT/ML 1 ML VIAL SUBCUT SCH ×2 (13:53→21:05)
[2020-02-20] MEDS: LORAZEPAM INJ 2 MG/1 ML VIAL IV PRN ×3 (13:54→20:22)
[2020-02-20] MEDS: THIAMINE HCL 100 MG, FOLIC ACID 1 MG in NORMAL SALINE 250 ML IV SCH (13:55)
[2020-02-20] MEDS: LEVOFLOXACIN 750 MG/D5W RTU 750 MG/150 ML RTUPB IV SCH ×2 (13:57→14:03)
[2020-02-20] MEDS: CALCIUM GLUC IN NACL, ISO-OSM 1 GM/50 ML RTUPB IV SCH (14:18)
[2020-02-20 17:41] LABS: ALBUMIN 3.2 g/dL (3.5-5.0); ANION GAP 6 (5-19); BLOOD UREA NITROGEN 3 mg/dL (7-20); CALCIUM 7.1 mg/dL (8.4-10.2); CARBON DIOXIDE 28 mmol/L (22-30); CHLORIDE 101 mmol/L (98-107); GLUCOSE 121 mg/dL (75-110)
[2020-02-20 17:49] LABS: POTASSIUM 2.7 mmol/L (3.6-5.0)
[2020-02-20] MEDS: POTASSIUM CHLORIDE 20 MEQ/50 ML RTU IV SCH ×2 (19:04→20:24)
[2020-02-20] MEDS: NORMAL SALINE 1000 ML 1,000 ML IV PRN (20:00)
[2020-02-20] MEDS: PROPRANOLOL HCL 10 MG TABLET PO SCH (21:06)
[2020-02-20] MEDS: GABAPENTIN 300 MG CAPSULE PO SCH (21:06)
[2020-02-21] MEDS: LORAZEPAM INJ 2 MG/1 ML VIAL IV PRN ×7 (00:20→23:52)
[2020-02-21] MEDS: POTASSIUM CHLORIDE 20 MEQ/50 ML RTU IV SCH ×4 (00:53→11:50)
[2020-02-21] MEDS: METRONIDAZOLE 500 MG/NS RTU 500 MG/100 ML RTUPB IV SCH ×5 (00:54→23:49)
[2020-02-21] MEDS: NORMAL SALINE 1000 ML 1,000 ML IV PRN (01:23)
[2020-02-21 05:20] LABS: HEMATOCRIT 28.1 % (37.9-51.0); RED BLOOD COUNT 2.79 10^6/uL (4.35-5.55); WHITE BLOOD COUNT 5.2 10^3/uL (4.0-10.5)
[2020-02-21 05:21] LABS: MEAN CORPUSCULAR HEMOGLOBIN 35.9 pg (27.0-33.4); MEAN CORPUSCULAR HGB CONC 35.6 g/dL (32.0-36.0); MEAN CORPUSCULAR VOLUME 101 fl (80-97); RED CELL DISTRIBUTION WIDTH 15.7 % (11.5-14.0)
[2020-02-21 05:38] LABS: ABSOLUTE LYMPHOCYTES# (MANUAL) 1.5 10^3/uL (0.5-4.7); ABSOLUTE MONOCYTES # (MANUAL) 0.5 10^3/uL (0.1-1.4); BAND NEUTROPHILS % (MANUAL) 4 % (3-5); BASOPHILS % (MANUAL) 0 % (0-2); EOSINOPHILS % (MANUAL) 0 % (0-6); LYMPHOCYTES % (MANUAL) 29 % (13-45); METAMYELOCYTES % (MANUAL) 1 % (0-1); MONOCYTES % (MANUAL) 9 % (3-13); NUCLEATED RED BLOOD CELLS 3 /100 WBC (0); SEGMENTED NEUTROPHILS % (MAN) 57 % (42-78); TOTAL CELLS COUNTED 100
[2020-02-21 05:41] LABS: ALBUMIN 3.3 g/dL (3.5-5.0); ALKALINE PHOSPHATASE 93 U/L (38-126); ANION GAP 6 (5-19); ANISOCYTOSIS 1+; ASPARTATE AMINO TRANSFERASE 69 U/L (17-59); BILIRUBIN,DIRECT 0.1 mg/dL (0.0-0.4); BILIRUBIN,TOTAL 0.8 mg/dL (0.2-1.3); BLOOD UREA NITROGEN 2 mg/dL (7-20); CALCIUM 7.2 mg/dL (8.4-10.2); CARBON DIOXIDE 27 mmol/L (22-30); CHLORIDE 103 mmol/L (98-107); GLUCOSE 115 mg/dL (75-110); PLATELET COMMENT DECREASED; PLATELET COUNT 94 10^3/uL (150-450); POLYCHROMASIA 1+
[2020-02-21 05:47] LABS: POTASSIUM 2.8 mmol/L (3.6-5.0)
[2020-02-21] MEDS: DIAZEPAM INJ 10 MG/2 ML DISP.SYRIN IV SCH ×2 (06:27→18:17)
[2020-02-21] MEDS: HEPARIN SOD (PORCINE) 5,000 UNIT/ML 1 ML VIAL SUBCUT SCH ×3 (06:27→22:50)
[2020-02-21 08:00] LABS: HEPATITS B SURFACE ANTIGEN Negative (Negative)
[2020-02-21] MEDS: POTASSIUM CHLORIDE 10 MEQ TABLET.ER PO SCH ×3 (08:50→17:14)
[2020-02-21] MEDS: GABAPENTIN 300 MG CAPSULE PO SCH ×2 (08:59→21:26)
[2020-02-21] MEDS: LEVOFLOXACIN 750 MG/D5W RTU 750 MG/150 ML RTUPB IV SCH (08:59)
[2020-02-21] MEDS: PROPRANOLOL HCL 10 MG TABLET PO SCH ×2 (08:59→21:26)
[2020-02-21] MEDS: VITAMIN B COMPLEX TABLET PO SCH (09:01)
[2020-02-21] MEDS: THIAMINE HCL 100 MG, FOLIC ACID 1 MG in NORMAL SALINE 250 ML IV SCH (09:01)
[2020-02-21 09:16] LABS: HEPATITIS C VIRUS ANTIBODY <0.1 s/co ratio (0.0-0.9)
[2020-02-21] MEDS: CALCIUM GLUC IN NACL, ISO-OSM 1 GM/50 ML RTUPB IV SCH ×2 (09:27→14:37)
--- NOTE | 2020-02-21 12:20 | PDOC PROGRESS REPORT ---
Subjective Progress Note for:: 02/21/20 Subjective:: He pulled out his IV and had to have it replaced twice yesterday. He has had some loose stools but that seems to have let up. Vital signs been stable. He was very somnolent this morning. Reason For Visit: ENTERITIS, DENTAL INFECTION ALCOHOL WITHDRAW Physical Exam Vital Signs: Temp Pulse Resp BP Pulse Ox 99.1 F 77 16 133/93 H 96 02/21/20 10:59 02/21/20 12:09 02/21/20 12:09 02/21/20 10:59 02/21/20 12:09 Intake & Output 02/20/20 02/21/20 02/22/20 06:59 06:59 06:59 Intake Total 298 3418.2 1182 Output Total 1850 750 Balance 298 1568.2 432 Weight 90.718 kg 89.5 kg General appearance: PRESENT: no acute distress, disheveled Respiratory exam: PRESENT: clear to auscultation erick, symmetrical, unlabored. ABSENT: accessory muscle use, crackles, prolonged expiratory phas, rhonchi, tachypnea, wheezes Cardiovascular exam: PRESENT: RRR, +S1, +S2 Pulses: PRESENT: normal carotid pulses Vascular exam: PRESENT: normal capillary refill GI/Abdominal exam: PRESENT: distended, hypoactive bowel sounds, soft. ABSENT: guarding, rebound, tenderness Extremities exam: ABSENT: clubbing, pedal edema Musculoskeletal exam: PRESENT: normal inspection. ABSENT: deformity Neurological exam: PRESENT: other - Somnolent, woke up with moderate stimuli then looked at me closes eyes and went back to sleep Skin exam: PRESENT: dry, warm Results Laboratory Results: 02/21/20 04:59 02/21/20 04:59 02/20/20 02/20/20 02/20/20 11:14 17:13 17:13 WBC RBC Hgb Hct MCV MCH MCHC RDW Plt Count Seg Neutrophils % Sodium 135.1 L Potassium 2.7 L* Chloride 101 Carbon Dioxide 28 Anion Gap 6 BUN 3 L Creatinine 0.51 L Est GFR ( Amer) > 60 Glucose 121 H Calcium 7.1 L Ionized Calcium Tim 0.93 L Magnesium 2.1 Total Bilirubin GGT 1238 H AST Alkaline Phosphatase C-Reactive Protein 62.6 H Total Protein Albumin 3.2 L 0602/21/20 02/21/20 04:59 04:59 04:59 WBC 5.2 RBC 2.79 L Hgb 10.0 L Hct 28.1 L MCV 101 H MCH 35.9 H MCHC 35.6 RDW 15.7 H Plt Count 94 L Seg Neutrophils % Not Reportable Sodium 135.7 L Potassium 2.8 L* Chloride 103 Carbon Dioxide 27 Anion Gap 6 BUN 2 L Creatinine 0.46 L Est GFR ( Amer) > 60 Glucose 115 H Calcium 7.2 L Ionized Calcium Tim Magnesium 2.0 Total Bilirubin 0.8 GGT AST 69 H Alkaline Phosphatase 93 C-Reactive Protein Total Protein 6.0 L Albumin 3.3 L 02/20/20 04:28 Blood Blood Culture (PCR) - Final Staphylococcus Species 02/19/20 02/20/20 02/20/20 20:47 00:47 03:28 Creatine Kinase 204 H Troponin I < 0.012 < 0.012 Impressions: Chest X-Ray 02/19/20 21:02 IMPRESSION: No evidence of active intrathoracic disease. Abdomen Ultrasound 02/20/20 00:00 IMPRESSION: Fatty liver. No ascites. Abdomen/Pelvis CT 02/20/20 04:21 IMPRESSION: 1. Mild diffuse small bowel ileus. 2. Colonic fluid which may indicate ileus, malabsorption, or enteritis/toxin. 3. Hepatic steatosis. Assessment and Plan - Diagnosis (1) Acute and chronic cholecystitis Is this a current diagnosis for this admission?: Yes Plan: Continue antibiotics and IV fluids. Abdominal ultrasound obtained. No evidence of obstructive biliary disease. (2) Alcohol withdrawal Qualifiers: Complication of substance-induced condition: uncomplicated Qualified Code(s): F10.230 - Alcohol dependence with withdrawal, uncomplicated Is this a current diagnosis for this admission?: Yes Plan: Thiamine, folate, scheduled Valium with PRN Ativan (3) Alcoholic fatty liver Is this a current diagnosis for this admission?: Yes Plan: Likely longstanding. Will encourage alcohol cessation. (4) Anemia Qualifiers: Anemia type: unspecified type Qualified Code(s): D64.9 - Anemia, unspecified Is this a current diagnosis for this admission?: Yes Plan: Looks to be microcytic, likely as a result of his long-term alcohol use. He is on appropriate vitamin supplementation. (5) Hypocalcemia Is this a current diagnosis for this admission?: Yes Plan: Replacing IV as needed, as long as he lets us keep an IV in (6) Hypokalemia Is this a current diagnosis for this admission?: Yes Plan: Replacing IV as needed. (7) Hypomagnesemia Is this a current diagnosis for this admission?: Yes Plan: Replacing IV as needed (8) Ileus Is this a current diagnosis for this admission?: Yes Plan: He is on some IV Reglan. He has been having some diarrhea. He did have some bowel sounds this morning. We will monitor progress and will advance diet as tolerated. - Time Time Spent with patient: 15-24 minutes
[2020-02-21] MEDS ORDERED: CALCIUM GLUCONATE 1000 MG/10 ML INJ IV ONE (14:24)
[2020-02-21 19:45] LABS: ANION GAP 6 (5-19); BLOOD UREA NITROGEN 2 mg/dL (7-20); CARBON DIOXIDE 24 mmol/L (22-30); CHLORIDE 105 mmol/L (98-107); GLUCOSE 115 mg/dL (75-110); POTASSIUM 3.2 mmol/L (3.6-5.0)
[2020-02-21] MEDS: IBUPROFEN 400 MG TABLET PO PRN (22:19)
[2020-02-21] MEDS ORDERED: IBUPROFEN 400 MG TABLET ONE (22:41)
[2020-02-22] MEDS: DIAZEPAM INJ 10 MG/2 ML DISP.SYRIN IV SCH (06:07)
[2020-02-22] MEDS: METRONIDAZOLE 500 MG/NS RTU 500 MG/100 ML RTUPB IV SCH ×4 (06:07→23:43)
[2020-02-22] MEDS: HEPARIN SOD (PORCINE) 5,000 UNIT/ML 1 ML VIAL SUBCUT SCH ×3 (06:13→22:37)
[2020-02-22] MEDS: VITAMIN B COMPLEX TABLET PO SCH (10:24)
[2020-02-22] MEDS: GABAPENTIN 300 MG CAPSULE PO SCH ×2 (10:24→21:51)
[2020-02-22] MEDS: POTASSIUM CHLORIDE 10 MEQ TABLET.ER PO SCH ×3 (10:24→17:28)
[2020-02-22] MEDS: PROPRANOLOL HCL 10 MG TABLET PO SCH ×2 (10:24→21:51)
[2020-02-22] MEDS: LEVOFLOXACIN 750 MG/D5W RTU 750 MG/150 ML RTUPB IV SCH (10:24)
[2020-02-22] MEDS: THIAMINE HCL 100 MG, FOLIC ACID 1 MG in NORMAL SALINE 250 ML IV SCH (10:26)
[2020-02-22] MEDS: LORAZEPAM INJ 2 MG/1 ML VIAL IV PRN ×3 (11:17→21:52)
--- NOTE | 2020-02-22 13:58 | PDOC PROGRESS REPORT ---
Subjective Progress Note for:: 02/22/20 Subjective:: No adverse events overnight. No new complaints. Apparently he was asking if he could have Ativan even when he did not show signs of withdrawal. His appetite is been good. He has been complaining of some loose stool but no abdominal pain. Reason For Visit: ENTERITIS, DENTAL INFECTION ALCOHOL WITHDRAW Physical Exam Vital Signs: Temp Pulse Resp BP Pulse Ox 98.4 F 99 18 140/94 H 97 02/22/20 11:40 02/22/20 11:40 02/22/20 11:40 02/22/20 11:40 02/22/20 11:40 Intake & Output 02/21/20 02/22/20 02/23/20 06:59 06:59 06:59 Intake Total 3418.2 3560 846 Output Total 1850 1350 Balance 1568.2 2210 846 Weight 89.5 kg 89.8 kg 89.3 kg General appearance: PRESENT: no acute distress, disheveled Respiratory exam: PRESENT: clear to auscultation erick, symmetrical, unlabored. ABSENT: accessory muscle use, crackles, prolonged expiratory phas, rhonchi, tachypnea, wheezes Cardiovascular exam: PRESENT: RRR, +S1, +S2 Pulses: PRESENT: normal carotid pulses Vascular exam: PRESENT: normal capillary refill GI/Abdominal exam: PRESENT: distended, hypoactive bowel sounds, soft. ABSENT: guarding, rebound, tenderness Extremities exam: ABSENT: clubbing, pedal edema Musculoskeletal exam: PRESENT: normal inspection. ABSENT: deformity Neurological exam: PRESENT: Awake, alert, oriented to person, oriented to place, oriented to situation Skin exam: PRESENT: dry, warm Results Laboratory Results: 02/21/20 04:59 02/21/20 19:12 02/21/20 19:12 Sodium 134.9 L Potassium 3.2 L Chloride 105 Carbon Dioxide 24 Anion Gap 6 BUN 2 L Creatinine 0.48 L Est GFR ( Amer) > 60 Glucose 115 H Calcium 8.0 L 02/20/20 04:28 Blood Blood Culture (PCR) - Final Staphylococcus Species 02/19/20 02/20/20 02/20/20 20:47 00:47 03:28 Creatine Kinase 204 H Troponin I < 0.012 < 0.012 Impressions: Chest X-Ray 02/19/20 21:02 IMPRESSION: No evidence of active intrathoracic disease. Abdomen Ultrasound 02/20/20 00:00 IMPRESSION: Fatty liver. No ascites. Abdomen/Pelvis CT 02/20/20 04:21 IMPRESSION: 1. Mild diffuse small bowel ileus. 2. Colonic fluid which may indicate ileus, malabsorption, or enteritis/toxin. 3. Hepatic steatosis. Assessment and Plan - Diagnosis (1) Acute and chronic cholecystitis Is this a current diagnosis for this admission?: Yes Plan: Continue antibiotics and IV fluids. Abdominal ultrasound obtained. No evidence of obstructive biliary disease. (2) Alcohol withdrawal Qualifiers: Complication of substance-induced condition: uncomplicated Qualified Code(s): F10.230 - Alcohol dependence with withdrawal, uncomplicated Is this a current diagnosis for this admission?: Yes Plan: Thiamine, folate, PRN Ativan. Scheduled Valium was discontinued. If he is able to tolerate this, he can be discharged tomorrow. (3) Alcoholic fatty liver Is this a current diagnosis for this admission?: Yes Plan: Likely longstanding. Will encourage alcohol cessation. (4) Anemia Qualifiers: Anemia type: unspecified type Qualified Code(s): D64.9 - Anemia, unspecified Is this a current diagnosis for this admission?: Yes Plan: Looks to be microcytic, likely as a result of his long-term alcohol use. He is on appropriate vitamin supplementation. (5) Hypocalcemia Is this a current diagnosis for this admission?: Yes Plan: Replacing IV as needed, as long as he lets us keep an IV in (6) Hypokalemia Is this a current diagnosis for this admission?: Yes Plan: Replacing with oral supplement as needed. (7) Hypomagnesemia Is this a current diagnosis for this admission?: Yes Plan: Replacing IV as needed (8) Ileus Is this a current diagnosis for this admission?: Yes Plan: Resolved. Diet advanced. - Time Time Spent with patient: 25-34 minutes
[2020-02-22] MEDS: IBUPROFEN 400 MG TABLET PO PRN (15:41)
[2020-02-23] MEDS: LORAZEPAM INJ 2 MG/1 ML VIAL IV PRN ×2 (00:28→06:34)
[2020-02-23] MEDS: HEPARIN SOD (PORCINE) 5,000 UNIT/ML 1 ML VIAL SUBCUT SCH ×3 (06:23→22:38)
[2020-02-23] MEDS: METRONIDAZOLE 500 MG/NS RTU 500 MG/100 ML RTUPB IV SCH ×4 (06:25→23:42)
[2020-02-23] MEDS ORDERED: LORAZEPAM INJ 2 MG/1 ML VIAL IV PRN (09:07)
[2020-02-23] MEDS: PROPRANOLOL HCL 10 MG TABLET PO SCH ×2 (09:39→21:26)
[2020-02-23] MEDS: THIAMINE HCL 100 MG, FOLIC ACID 1 MG in NORMAL SALINE 250 ML IV SCH (09:39)
[2020-02-23] MEDS: VITAMIN B COMPLEX TABLET PO SCH (09:39)
[2020-02-23] MEDS: LEVOFLOXACIN 750 MG/D5W RTU 750 MG/150 ML RTUPB IV SCH (09:39)
[2020-02-23] MEDS: GABAPENTIN 300 MG CAPSULE PO SCH ×2 (09:39→21:26)
[2020-02-23] MEDS: POTASSIUM CHLORIDE 10 MEQ TABLET.ER PO SCH ×3 (09:39→17:46)
[2020-02-23] MEDS: IBUPROFEN 400 MG TABLET PO PRN ×2 (09:44→22:32)
--- NOTE | 2020-02-23 14:18 | PDOC PROGRESS REPORT ---
Subjective Progress Note for:: 02/23/20 Subjective:: No adverse events overnight. No new complaints. He asked for and received several doses of Ativan yesterday evening. It is not known if any overt signs of withdrawal were seen at that time. Vital signs been stable. Eating and drinking without difficulty. Diarrhea has improved. Reason For Visit: ENTERITIS, DENTAL INFECTION ALCOHOL WITHDRAW Physical Exam Vital Signs: Temp Pulse Resp BP Pulse Ox 97.7 F 84 18 118/92 H 99 02/23/20 11:29 02/23/20 11:29 02/23/20 11:29 02/23/20 11:29 02/23/20 11:29 Intake & Output 02/22/20 02/23/20 02/24/20 06:59 06:59 06:59 Intake Total 3560 2461 220 Output Total 1350 Balance 2210 2461 220 Weight 89.8 kg 88.2 kg General appearance: PRESENT: no acute distress, disheveled Respiratory exam: PRESENT: clear to auscultation erick, symmetrical, unlabored. ABSENT: accessory muscle use, crackles, prolonged expiratory phas, rhonchi, tachypnea, wheezes Cardiovascular exam: PRESENT: RRR, +S1, +S2 Pulses: PRESENT: normal carotid pulses Vascular exam: PRESENT: normal capillary refill GI/Abdominal exam: PRESENT: distended, hypoactive bowel sounds, soft. ABSENT: guarding, rebound, tenderness Extremities exam: ABSENT: clubbing, pedal edema Musculoskeletal exam: PRESENT: normal inspection. ABSENT: deformity Neurological exam: PRESENT: Awake, alert, oriented to person, oriented to place, oriented to situation Skin exam: PRESENT: dry, warm Results Laboratory Results: 02/21/20 04:59 02/21/20 19:12 02/20/20 04:28 Blood Blood Culture (PCR) - Final Staphylococcus Species 02/19/20 02/20/20 02/20/20 20:47 00:47 03:28 Creatine Kinase 204 H Troponin I < 0.012 < 0.012 Impressions: Chest X-Ray 02/19/20 21:02 IMPRESSION: No evidence of active intrathoracic disease. Abdomen Ultrasound 02/20/20 00:00 IMPRESSION: Fatty liver. No ascites. Abdomen/Pelvis CT 02/20/20 04:21 IMPRESSION: 1. Mild diffuse small bowel ileus. 2. Colonic fluid which may indicate ileus, malabsorption, or enteritis/toxin. 3. Hepatic steatosis. Assessment and Plan - Diagnosis (1) Acute and chronic cholecystitis Is this a current diagnosis for this admission?: Yes Plan: Continue antibiotics and IV fluids. Abdominal ultrasound obtained. No evidence of obstructive biliary disease. (2) Alcohol withdrawal Qualifiers: Complication of substance-induced condition: uncomplicated Qualified Code(s): F10.230 - Alcohol dependence with withdrawal, uncomplicated Is this a current diagnosis for this admission?: Yes Plan: Thiamine, folate, PRN Ativan. Scheduled Valium was discontinued. I have cut back his as needed Ativan even more. I have told him that the goal is to go all day without any Ativan so that he can go home tomorrow, and he verbalizes understanding. (3) Alcoholic fatty liver Is this a current diagnosis for this admission?: Yes Plan: Likely longstanding. Will encourage alcohol cessation. (4) Anemia Qualifiers: Anemia type: unspecified type Qualified Code(s): D64.9 - Anemia, unspecified Is this a current diagnosis for this admission?: Yes Plan: Looks to be microcytic, likely as a result of his long-term alcohol use. He is on appropriate vitamin supplementation. (5) Hypocalcemia Is this a current diagnosis for this admission?: Yes Plan: Replacing IV as needed, as long as he lets us keep an IV in (6) Hypokalemia Is this a current diagnosis for this admission?: Yes Plan: Replacing with oral supplement as needed. (7) Hypomagnesemia Is this a current diagnosis for this admission?: Yes Plan: Replacing IV as needed (8) Ileus Is this a current diagnosis for this admission?: Yes Plan: Resolved. Diet advanced. - Time Time Spent with patient: 15-24 minutes
[2020-02-24] MEDS: HEPARIN SOD (PORCINE) 5,000 UNIT/ML 1 ML VIAL SUBCUT SCH ×2 (06:41→14:54)
[2020-02-24] MEDS: IBUPROFEN 400 MG TABLET PO PRN (06:45)
[2020-02-24] MEDS: METRONIDAZOLE 500 MG/NS RTU 500 MG/100 ML RTUPB IV SCH ×2 (06:48→14:53)
[2020-02-24] MEDS: VITAMIN B COMPLEX TABLET PO SCH (10:16)
[2020-02-24] MEDS: PROPRANOLOL HCL 10 MG TABLET PO SCH (10:16)
[2020-02-24] MEDS: GABAPENTIN 300 MG CAPSULE PO SCH (10:17)
[2020-02-24] MEDS: LEVOFLOXACIN 750 MG/D5W RTU 750 MG/150 ML RTUPB IV SCH (10:17)
[2020-02-24] MEDS: POTASSIUM CHLORIDE 10 MEQ TABLET.ER PO SCH ×2 (10:17→14:54)
[2020-02-24 12:18] VITALS: BP 149/106
--- NOTE | 2020-02-24 13:36 | PDOC DISCHARGE SUMMARY ---
Impression - Admit/DC Date/PCP Admission Date/Primary Care Provider: 02/20/20 06:08 Discharge Date: 02/24/20 - Discharge Diagnosis (1) Acute and chronic cholecystitis Is this a current diagnosis for this admission?: Yes (2) Alcohol withdrawal Is this a current diagnosis for this admission?: Yes (3) Alcoholic fatty liver Is this a current diagnosis for this admission?: Yes (4) Anemia Is this a current diagnosis for this admission?: Yes (5) Hypocalcemia Is this a current diagnosis for this admission?: Yes (6) Hypokalemia Is this a current diagnosis for this admission?: Yes (7) Hypomagnesemia Is this a current diagnosis for this admission?: Yes (8) Ileus Is this a current diagnosis for this admission?: Yes - Additional Information Resuscitation Status: Full Code Discharge Diet: Regular Discharge Activity: Activity As Tolerated Home Medications: Gabapentin [Neurontin 300 mg Capsule] 300 mg PO Q12 02/20/20 Propranolol HCl [Inderal 10 mg Tablet] 10 mg PO Q12 02/20/20 Thiamine HCl [Thiamine 100 mg Tablet] 100 mg PO DAILY 02/20/20 History of Present Illiness History of Present Illness: GENE ANDINO is a 44 year old male with a past medical history of alcoholic hepatitis, cholecystitis, alcohol and substance dependence and alcohol withdrawal. Patient was admitted to [facility] for alcohol dependence with anticipated alcohol withdrawal. He developed abdominal pain and fever prompting evaluation emergency department he is found to have fever, enteritis by CT, hypocalcemia and hypokalemia. He receives electrolyte repletion, empiric antibiotics, IV fluid challenge and referred to the hospitalist for admission. Patient was diagnosed with cholecystitis 4 months ago recommended to have outpatient surgical follow-up for cholecystectomy but was lost to follow-up. Hospital Course Hospital Course: He was put empirically on antibiotics for what was thought to be an acute on chronic cholecystitis, but his imaging was negative. He does not need to be on any antibiotics at home. He was initially in alcohol withdrawal but we took him off of his benzodiazepines and he did fine. He was still calling out for his PRN Ativan even though he was not showing any signs of withdrawal, and I had to discontinue it altogether. He is not had any now in about 12 hours at least and he has done fine. He came in with some medications on home medication reconciliation list, but he said he is not taking anything at home. His labs and examination were reassuring and he was discharged in stable condition. Physical Exam Vital Signs: Temp Pulse Resp BP Pulse Ox 97.6 F 88 22 H 149/106 H 100 02/24/20 13:09 02/24/20 13:09 02/24/20 13:09 02/24/20 11:34 02/24/20 13:09 Intake & Output 02/23/20 02/24/20 02/25/20 06:59 06:59 06:59 Intake Total 2461 2112 340 Balance 2461 2112 340 Weight 88.2 kg 88.5 kg General appearance: PRESENT: no acute distress, disheveled Respiratory exam: PRESENT: clear to auscultation erick, symmetrical, unlabored. ABSENT: accessory muscle use, crackles, prolonged expiratory phas, rhonchi, tachypnea, wheezes Cardiovascular exam: PRESENT: RRR, +S1, +S2 Pulses: PRESENT: normal carotid pulses Vascular exam: PRESENT: normal capillary refill GI/Abdominal exam: PRESENT: distended, hypoactive bowel sounds, soft. ABSENT: guarding, rebound, tenderness Extremities exam: ABSENT: clubbing, pedal edema Musculoskeletal exam: PRESENT: normal inspection. ABSENT: deformity Neurological exam: PRESENT: Awake, alert, oriented to person, oriented to place, oriented to situation Skin exam: PRESENT: dry, warm Results Laboratory Results: WBC 5.2 10^3/uL (4.0-10.5) 02/21/20 04:59 RBC 2.79 10^6/uL (4.35-5.55) L 02/21/20 04:59 Hgb 10.0 g/dL (13.5-17.0) L 02/21/20 04:59 Hct 28.1 % (37.9-51.0) L 02/21/20 04:59 MCV 101 fl (80-97) H 02/21/20 04:59 MCH 35.9 pg (27.0-33.4) H 02/21/20 04:59 MCHC 35.6 g/dL (32.0-36.0) 02/21/20 04:59 RDW 15.7 % (11.5-14.0) H 02/21/20 04:59 Plt Count 94 10^3/uL (150-450) L 02/21/20 04:59 Lymph % (Auto) Not Reportable 02/21/20 04:59 [place] % (Auto) Not Reportable 02/21/20 04:59 Eos % (Auto) Not Reportable 02/21/20 04:59 Baso % (Auto) Not Reportable 02/21/20 04:59 Absolute Neuts (auto) Not Reportable 02/21/20 04:59 Absolute Lymphs (auto) Not Reportable 02/21/20 04:59 Absolute Monos (auto) Not Reportable 02/21/20 04:59 Absolute Eos (auto) Not Reportable 02/21/20 04:59 Absolute Basos (auto) Not Reportable 02/21/20 04:59 Total Counted 100 02/21/20 04:59 Seg Neutrophils % Not Reportable 02/21/20 04:59 Seg Neuts % (Manual) 57 % (42-78) 02/21/20 04:59 Band Neutrophils % 4 % (3-5) 02/21/20 04:59 Lymphocytes % (Manual) 29 % (13-45) 02/21/20 04:59 Monocytes % (Manual) 9 % (3-13) 02/21/20 04:59 Eosinophils % (Manual) 0 % (0-6) 02/21/20 04:59 Basophils % (Manual) 0 % (0-2) 02/21/20 04:59 Metamyelocytes % 1 % (0-1) 02/21/20 04:59 Promyelocytes % 1 % (0) H 02/19/20 20:47 Abs Neuts (Manual) 3.2 10^3/uL (1.7-8.2) 02/21/20 04:59 Abs Lymphs (Manual) 1.5 10^3/uL (0.5-4.7) 02/21/20 04:59 Abs Monocytes (Manual) 0.5 10^3/uL (0.1-1.4) 02/21/20 04:59 Absolute Eos (Manual) 0.0 10^3/uL (0.0-0.6) 02/21/20 04:59 Abs Basophils (Manual) 0.0 10^3/uL (0.0-0.2) 02/21/20 04:59 Nucleated RBCs 3 /100 WBC (0) 02/21/20 04:59 Toxic Granulation SLIGHT 02/19/20 20:47 Platelet Comment DECREASED 02/21/20 04:59 Polychromasia 1+ 02/21/20 04:59 Anisocytosis 1+ 02/21/20 04:59 Macrocytosis 1+ 02/19/20 20:47 VBG pH 7.47 (7.30-7.42) H 02/20/20 04:28 VBG pCO2 35.0 mmHg (35-63) 02/20/20 04:28 VBG HCO3 25.0 mmol/L (20-32) 02/20/20 04:28 VBG Base Excess 1.6 mmol/L 02/20/20 04:28 Sodium 134.9 mmol/L (137-145) L 02/21/20 19:12 Potassium 3.2 mmol/L (3.6-5.0) L 02/21/20 19:12 Chloride 105 mmol/L (98-107) 02/21/20 19:12 Carbon Dioxide 24 mmol/L (22-30) 02/21/20 19:12 Anion Gap 6 (5-19) 02/21/20 19:12 BUN 2 mg/dL (7-20) L 02/21/20 19:12 Creatinine 0.48 mg/dL (0.52-1.25) L 02/21/20 19:12 Est GFR ( Amer) > 60 (>60) 02/21/20 19:12 Est GFR (MDRD) Non-Af > 60 (>60) 02/21/20 19:12 Glucose 115 mg/dL (75-110) H 02/21/20 19:12 POC Glucose 128 mg/dL (70-110) H 02/22/20 11:40 Lactic Acid 2.8 mmol/L (0.7-2.1) H 02/20/20 04:28 Calcium 8.0 mg/dL (8.4-10.2) L 02/21/20 19:12 Ionized Calcium Tim 0.93 mmol/L (1.14-1.30) L 02/20/20 17:13 Phosphorus 4.1 mg/dL (2.5-4.5) 02/20/20 03:28 Magnesium 2.0 mg/dL (1.6-2.3) 02/21/20 04:59 Total Bilirubin 0.8 mg/dL (0.2-1.3) 02/21/20 04:59 Direct Bilirubin 0.1 mg/dL (0.0-0.4) 02/21/20 04:59 Neonat Total Bilirubin Not Reportable 02/21/20 04:59 Neonat Direct Bilirubin Not Reportable 02/21/20 04:59 Neonat Indirect Bili Not Reportable 02/21/20 04:59 GGT 1238 U/L (8-78) H 02/20/20 11:14 AST 69 U/L (17-59) H 02/21/20 04:59 ALT 27 U/L (<50) 02/21/20 04:59 Alkaline Phosphatase 93 U/L (38-126) 02/21/20 04:59 Creatine Kinase 204 U/L (55-170) H 02/20/20 03:28 Troponin I < 0.012 ng/mL 02/20/20 00:47 C-Reactive Protein 62.6 mg/L (<10.0) H 02/20/20 11:14 Total Protein 6.0 g/dL (6.3-8.2) L 02/21/20 04:59 Albumin 3.3 g/dL (3.5-5.0) L 02/21/20 04:59 Lipase 216.7 U/L (23-300) 02/19/20 20:47 Urine Color YELLOW 02/20/20 05:13 Urine Appearance CLEAR 02/20/20 05:13 Urine pH 7.0 (5.0-9.0) 02/20/20 05:13 Ur Specific [place] 1.005 02/20/20 05:13 Urine Protein NEGATIVE mg/dL (NEGATIVE) 02/20/20 05:13 Urine Glucose (UA) NEGATIVE mg/dL (NEGATIVE) 02/20/20 05:13 Urine Ketones NEGATIVE mg/dL (NEGATIVE) 02/20/20 05:13 Urine Blood NEGATIVE (NEGATIVE) 02/20/20 05:13 Urine Nitrite NEGATIVE (NEGATIVE) 02/20/20 05:13 Urine Bilirubin NEGATIVE (NEGATIVE) 02/20/20 05:13 Urine Urobilinogen NEGATIVE mg/dL (<2.0) 02/20/20 05:13 Ur Leukocyte Esterase NEGATIVE (NEGATIVE) 02/20/20 05:13 Urine WBC (Auto) 1 /HPF 02/20/20 05:13 Urine RBC (Auto) 0 /HPF 02/20/20 05:13 Urine Ascorbic Acid NEGATIVE (NEGATIVE) 02/20/20 05:13 Urine Opiates Screen NEGATIVE 02/20/20 05:13 Urine Methadone Screen NEGATIVE 02/20/20 05:13 Ur Barbiturates Screen NEGATIVE 02/20/20 05:13 Ur Phencyclidine Scrn NEGATIVE 02/20/20 05:13 Ur Amphetamines Screen NEGATIVE 02/20/20 05:13 U Benzodiazepines Scrn NEGATIVE 02/20/20 05:13 Urine Cocaine Screen NEGATIVE 02/20/20 05:13 U Marijuana (THC) Screen NEGATIVE 02/20/20 05:13 Serum Alcohol < 10 mg/dL (NONE DETECTED) 02/20/20 03:28 Hepatitis A IgM Ab Negative (Negative) 02/20/20 07:01 Hep Bs Antigen Negative (Negative) 02/20/20 07:01 Hep B Core IgM Ab Negative (Negative) 02/20/20 07:01 Hepatitis C Antibody <0.1 s/co ratio (0.0-0.9) 02/20/20 07:01 Slides for Path Review PATHOLOGIST REVIEWED 02/19/20 20:47 02/19/20 02/20/20 20:47 00:47 Troponin I < 0.012 < 0.012 Impressions: Chest X-Ray 02/19/20 21:02 IMPRESSION: No evidence of active intrathoracic disease. Abdomen Ultrasound 02/20/20 00:00 IMPRESSION: Fatty liver. No ascites. Abdomen/Pelvis CT 02/20/20 04:21 IMPRESSION: 1. Mild diffuse small bowel ileus. 2. Colonic fluid which may indicate ileus, malabsorption, or enteritis/toxin. 3. Hepatic steatosis. Plan Goals: patient is going back to [facility] and willl go to his doctor there Time Spent: Greater than 30 Minutes Stroke Is this a Stroke Patient?: No Acute Heart Failure - Is this a Heart Failure Patient?: No
[2020-02-24] MEDS: THIAMINE HCL 100 MG, FOLIC ACID 1 MG in NORMAL SALINE 250 ML IV SCH (14:53)
== END 2020-02-24 16:03 | disposition home or self-care (01) | DRG 445 ==
LOC: ER 20:38 → EH 02-20 06:08 → 3W 02-20 08:18
PROVIDERS: ADMIT Internal Medicine; ATTEND Family Medicine
DX: K81.0 Acute cholecystitis (principal); K56.7 Ileus, unspecified; F19.20 Other psychoactive substance dependence, uncomplicated; F10.230 Alcohol dependence with withdrawal, uncomplicated; K70.0 Alcoholic fatty liver; E83.51 Hypocalcemia; E87.6 Hypokalemia; E83.42 Hypomagnesemia; K81.1 Chronic cholecystitis; I10 Essential (primary) hypertension; K21.9 Gastro-esophageal reflux disease without esophagitis; F32.9 Major depressive disorder, single episode, unspecified; E66.9 Obesity, unspecified; D53.9 Nutritional anemia, unspecified; Z79.899 Other long term (current) drug therapy; Z82.49 Family history of ischemic heart disease and other diseases of the circulatory system; Z68.28 Body mass index [BMI] 28.0-28.9, adult
CPT/HCPCS: 36415; 71045; 74177; 76700; 80048; 80053; 80074; 80307; 81001; 82040; 82330; 82550; 82803; 82962; 82977; 83605; 83690; 83735; 84100; 84484; 85025; 86140; 87040; 87077; 87150; 87186; 93005; 93010; 96365; 96366; 96368; 96375; 99285; J0610; J0295; J0696; J1956; J2060; J2765; J3360; J3411; J3475; J3480; J3490; J7030; J7050